=== PATIENT | male | born 2000 | race Asian ===

== ENCOUNTER 2022-01-25 15:47 | Inpatient (IN) ==
[~2022-01-25 15:47] MED LIST: ETOMIDATE 2 MG/ML 20 ML VIAL IV ONE; SUCCINYLCHOLINE CHLORIDE 20 MG/ML 10 ML VIAL IV ONE; fentaNYL citrate 100 MCG/2 ML VIAL IV ONE
[2022-01-25] MEDS ORDERED: SODIUM CHLORIDE 0.9% 1000ML 1,000 ML IV SCH (16:15)
--- NOTE | 2022-01-25 16:18 | Emergency Department Note ---
Impression & Plan Drug overdose, Seizure-like activity, Acute hypokalemia ED Provider Note HISTORY OF PRESENT ILLNESS: Patient is a 21-year-old male presenting after an intentional overdose. Family called 911 after they found the patient unconscious in his room. He took 25 pills of Wellbutrin 150 mg. Unknown ingestion time. Pharmacy records indicate the patient had a 90-day supply of bupropiron HCL XL 150 mg on 12/13/2021. Parents witnessed the patient have a tonic-clonic seizure and called 911. He reportedly just had a break-up with a girlfriend and had expressed thoughts of wanting to hurt himself. In route with EMS, the patient had another tonic- clonic seizure-like episode and was given 2.5 mg of Versed. He was given 1 L normal saline in route for tachycardia. On arrival to the ER, patient is lethargic and not able to answer any questions. ROS: Patient currently has altered mental status and is unable to provide accurate information regarding ROS, histories, meds, or allergies. Any information regarding ROS, Past medical or surgical history, social or family history documented below has been obtained from the EMR. Any additional history reg arding this cannot be obtained presently due to his medical condition. PHYSICAL EXAM: Constitutional: Patient appears in mild distress. HENT: Head: Normocephalic and atraumatic. Eyes: PERRL - Pupils 3 mm and reactive. Mouth/Throat: Mucous membranes moist. Neck: Trachea midline. Neck supple. Cardiovascular: Tachycardic with regular rhythm. No murmurs, rubs or gallops. Intact distal pulses. Pulmonary/Chest: No respiratory distress. Breath sounds clear and equal bilaterally. No wheezes or rales. Abdominal: BS +. Abdomen soft, no tenderness, rebound or guarding. Back: No midline spinal tenderness, no paraspinal tenderness, no CVA tenderness. Musculoskeletal: No edema, tenderness or deformity noted. Skin: Warm and dry. Psychiatric: Unable to assess. Neurological: Lethargic but opens eyes to painful stimuli. Does not follow comm ands. Gag reflex intact. Clonus present in bilateral lower extremities. MDM: - Vitals signs showed tachycardia and hypoxia. Started on 3L NC for respiratory support. - Patient has intact gag reflex and seems to be supporting his own airway at this time. - EKG negative for acute ischemic changes or dysrhythmia. Noted to be sinus tachycardia. QTc slightly prolonged at 515. - Contacted [facility] at 16:19 and discussed patient's case. Th recommended: - 2g IV mag for QTc >500 - Repeat EKG Q6H - Keep mag >2 and K >4 - Benzos for seizures and/or tachycardia - 2g IV mag ordered for prolonged QTc. 1g IV potassium ordered for replacement. - Laboratory workup showed leukocytosis (WBC 14.54 - likely reactive secondary to seizure); hypokalemia (K 3.3); elevated anion gap (25); negative salicylates and acetaminophen levels - ABG grossly unremarkable. - UA negative for infection - UDS positive for marijuana and MDMA - CXR negative for acute cardiopulmonary pathology. - While in ER, patient had a 15 second episode of seizure-like activity that broke without meds. He was given 0.5 mg IV ativan for tachycardia and continued confusion post-seizure. - Hospitalist Dr. Lim consulted for admission. - Patient admitted to hospitalist service for further evaluation and management. ASSESSMENT AND PLAN: Diagnosis: overdose; seizure-like activity; hypokalemia; prolonged QTc; elevated anion gap Plan: admit Past Med/Surg History Social History Smoking Status: Unknown if ever smoked Preferred Language: Croatian Feels Safe at Home: Yes Allergies Allergies Allergy/AdvReac Type Severity Reaction Status Date / Time No Known Allergies Allergy Unknown Unverified 09/02/02 10:50 Home Meds Home Medications Medication Instructions Recorded Confirmed bupropion HCl 150 mg 24 hr tablet, 150 mg PO QAM 01/25/22 01/25/22 extended release Results & Data (ED) Vital Signs Vital Signs - 24 hr 01/25/22 15:59 01/25/22 15:59 01/25/22 16:24 Temperature 36.7 C Temperature Source Oral Pulse Rate 137 H 126 H Respiratory Rate 22 20 Blood Pressure 90/47 L Blood Pressure Mean 61 Pulse Oximetry 95 88 L 97 Oxygen Delivery Method Nasal Cannula Nasal Cannula Nasal Cannula Oxygen Flow Rate 3 0 3 Sepsis New/Unexplained Change in Mental Status No Sepsis Action Taken by Nursing No Action Required Oxygen Flow Rate - Titration 3 Pulse Oximetry Post Tiitration 95 Laboratory Data Result diagrams: 01/25/22 15:47 01/25/22 15:47 Lab Results 11/26/22 11/26/22 11/26/22 Range/Units 15:47 15:47 15:47 WBC 14.54 H (4.8-10.8) K/ul RBC 6.23 H (4.63-6.08) M/uL Hgb 17.6 (14.0-18.0) g/dl Hct 51.1 H (40.1-51.0) % MCV 82.0 (80.0-100.0) fL MCH 28.3 (25.0-34.0) pg MCHC 34.4 (32.0-36.0) g/dL RDW Std Deviation 36.1 L (36.4-46.3) fL RDW Coeff of Silke 12.2 (11.5-14.5) % Plt Count 358 (130-400) K/uL MPV 9.4 (9.4-12.4) fL Immature Gran % (Auto) 0.6 % Neut % (Auto) 72.5 % Lymph % (Auto) 18.9 % Dickinson % (Auto) 6.0 % Eos % (Auto) 1.4 % Baso % (Auto) 0.6 % Neut # (Auto) 10.54 H (1.4-6.5) K/uL Lymph # (Auto) 2.75 (1.2-3.4) K/uL Dickinson # (Auto) 0.87 H (0.24-0.82) K/uL Eos # (Auto) 0.21 (0-0.50) K/uL Baso # (Auto) 0.09 (0-0.2) K/uL Immature Gran # (Auto) 0.08 H (0.00-0.02) K/uL PT 10.7 (9.0-12.0) Seconds INR 1.0 (0.9-1.1) ABG pH (7.35-7.45) ABG pCO2 (35-46) mmHg ABG pO2 (80-95) mmHg ABG HCO3 (19-24) mmol/L ABG O2 Saturation (90-95) % ABG Base Excess (-9-1.8) mEq/L Socrates Test (Pos) Oxygen Given Sodium 137 (136-145) mmol/L Potassium 3.3 L (3.5-5.1) mmol/L Chloride 100 (98-107) mmol/L Carbon Dioxide 12 L (21-32) mmol/L Anion Gap 25 H (3-11) BUN 11 (6-23) mg/dl Creatinine 1.26 (0.6-1.4) mg/dl Est Cr Clr Drug Dosing Not Reportable Est GFR ( Amer) 94.5 ml/min Est GFR (Non-Af Amer) 81.6 ml/min BUN/Creatinine Ratio 8.7 L (10-20) Glucose 111 H (70-99(Fasting)) mg/dl Calcium 9.9 (8.5-10.1) mg/dl Magnesium 2.1 (1.7-2.4) mg/dl Total Bilirubin 0.7 (0.2-1.0) mg/dl AST 20 (13-39) U/L ALT 26 (7-52) U/L Alkaline Phosphatase 95 (34-104) U/L Troponin I High Sens 4.5 (0-20) pg/ml Total Protein 8.4 H (6.0-8.3) gm/dl Albumin 5.2 H (3.4-5.0) gm/dl Globulin 3.2 (2.5-4.0) gm/dl Albumin/Globulin Ratio 1.6 (0.9-2) Urine Color Urine Appearance (Clear) Urine pH (4.5-7.5) Ur Specific [place] (1.000-1.030) Urine Protein (Negative) Urine Glucose (UA) (Negative) Urine Ketones (Negative) Urine Blood (Negative) Urine Nitrite (Negative) Urine Bilirubin (Negative) Urine Urobilinogen (Negative) Ur Leukocyte Esterase (Negative) Urine WBC (Auto) (0-5) /hpf Urine RBC (Auto) (0-4) /hpf U Hyaline Cast (Auto) (0-5) /lpf U Epithel Cells (Auto) (0-5) /lpf Urine Bacteria (Auto) (Negative) Salicylates (3.0-30) mg/dl Urine Opiates Screen (Neg) Ur Methadone, Qual (Neg) Acetaminophen (10-30) ug/ml Urine Barbiturates (Neg) Ur Phencyclidine (PCP) (Neg) U Amphetamin/Meth Scrn (Neg) MDMA (Ecstasy) Screen (Neg) U Benzodiazepines Scrn (Neg) Ur Cocaine Metabolite (Neg) U Marijuana (THC) Screen (Neg) Ethyl Alcohol mg/dL (<10.0) mg/dl 01/25/22 01/25/22 01/25/22 Range/Units 15:47 16:08 16:08 WBC (4.8-10.8) K/ul RBC (4.63-6.08) M/uL Hgb (14.0-18.0) g/dl Hct (40.1-51.0) % MCV (80.0-100.0) fL MCH (25.0-34.0) pg MCHC (32.0-36.0) g/dL RDW Std Deviation (36.4-46.3) fL RDW Coeff of Silke (11.5-14.5) % Plt Count (130-400) K/uL MPV (9.4-12.4) fL Immature Gran % (Auto) % Neut % (Auto) % Lymph % (Auto) % Dickinson % (Auto) % Eos % (Auto) % Baso % (Auto) % Neut # (Auto) (1.4-6.5) K/uL Lymph # (Auto) (1.2-3.4) K/uL Dickinson # (Auto) (0.24-0.82) K/uL Eos # (Auto) (0-0.50) K/uL Baso # (Auto) (0-0.2) K/uL Immature Gran # (Auto) (0.00-0.02) K/uL PT (9.0-12.0) Seconds INR (0.9-1.1) ABG pH (7.35-7.45) ABG pCO2 (35-46) mmHg ABG pO2 (80-95) mmHg ABG HCO3 (19-24) mmol/L ABG O2 Saturation (90-95) % ABG Base Excess (-9-1.8) mEq/L Socrates Test (Pos) Oxygen Given Sodium (136-145) mmol/L Potassium (3.5-5.1) mmol/L Chloride (98-107) mmol/L Carbon Dioxide (21-32) mmol/L Anion Gap (3-11) BUN (6-23) mg/dl Creatinine (0.6-1.4) mg/dl Est Cr Clr Drug Dosing Est GFR ( Amer) ml/min Est GFR (Non-Af Amer) ml/min BUN/Creatinine Ratio (10-20) Glucose (70-99(Fasting)) mg/dl Calcium (8.5-10.1) mg/dl Magnesium (1.7-2.4) mg/dl Total Bilirubin (0.2-1.0) mg/dl AST (13-39) U/L ALT (7-52) U/L Alkaline Phosphatase (34-104) U/L Troponin I High Sens (0-20) pg/ml Total Protein (6.0-8.3) gm/dl Albumin (3.4-5.0) gm/dl Globulin (2.5-4.0) gm/dl Albumin/Globulin Ratio (0.9-2) Urine Color Dark Yellow Urine Appearance Clear (Clear) Urine pH 5.5 (4.5-7.5) Ur Specific [place] 1.031 H (1.000-1.030) Urine Protein Trace H (Negative) Urine Glucose (UA) Negative (Negative) Urine Ketones Trace H (Negative) Urine Blood Negative (Negative) Urine Nitrite Negative (Negative) Urine Bilirubin 1+ H (Negative) Urine Urobilinogen Negative (Negative) Ur Leukocyte Esterase Negative (Negative) Urine WBC (Auto) 1-5 (0-5) /hpf Urine RBC (Auto) 0-4 (0-4) /hpf U Hyaline Cast (Auto) 1-5 (0-5) /lpf U Epithel Cells (Auto) 0-5 (0-5) /lpf Urine Bacteria (Auto) Negative (Negative) Salicylates < 3.0 L (3.0-30) mg/dl Urine Opiates Screen Neg (Neg) Ur Methadone, Qual Neg (Neg) Acetaminophen < 3 L (10-30) ug/ml Urine Barbiturates Neg (Neg) Ur Phencyclidine (PCP) Neg (Neg) U Amphetamin/Meth Scrn Neg (Neg) MDMA (Ecstasy) Screen Pos H (Neg) U Benzodiazepines Scrn Neg (Neg) Ur Cocaine Metabolite Neg (Neg) U Marijuana (THC) Screen Pos H (Neg) Ethyl Alcohol mg/dL (<10.0) mg/dl 01/25/22 01/25/22 Range/Units 16:40 16:40 WBC (4.8-10.8) K/ul RBC (4.63-6.08) M/uL Hgb (14.0-18.0) g/dl Hct (40.1-51.0) % MCV (80.0-100.0) fL MCH (25.0-34.0) pg MCHC (32.0-36.0) g/dL RDW Std Deviation (36.4-46.3) fL RDW Coeff of Silke (11.5-14.5) % Plt Count (130-400) K/uL MPV (9.4-12.4) fL Immature Gran % (Auto) % Neut % (Auto) % Lymph % (Auto) % Dickinson % (Auto) % Eos % (Auto) % Baso % (Auto) % Neut # (Auto) (1.4-6.5) K/uL Lymph # (Auto) (1.2-3.4) K/uL Dickinson # (Auto) (0.24-0.82) K/uL Eos # (Auto) (0-0.50) K/uL Baso # (Auto) (0-0.2) K/uL Immature Gran # (Auto) (0.00-0.02) K/uL PT (9.0-12.0) Seconds INR (0.9-1.1) ABG pH 7.34 L (7.35-7.45) ABG pCO2 41 (35-46) mmHg ABG pO2 117 H (80-95) mmHg ABG HCO3 22 (19-24) mmol/L ABG O2 Saturation > 100.0 H (90-95) % ABG Base Excess -3.5 (-9-1.8) mEq/L Socrates Test Pos (Pos) Oxygen Given 3L Sodium (136-145) mmol/L Potassium (3.5-5.1) mmol/L Chloride (98-107) mmol/L Carbon Dioxide (21-32) mmol/L Anion Gap (3-11) BUN (6-23) mg/dl Creatinine (0.6-1.4) mg/dl Est Cr Clr Drug Dosing Est GFR ( Amer) ml/min Est GFR (Non-Af Amer) ml/min BUN/Creatinine Ratio (10-20) Glucose (70-99(Fasting)) mg/dl Calcium (8.5-10.1) mg/dl Magnesium (1.7-2.4) mg/dl Total Bilirubin (0.2-1.0) mg/dl AST (13-39) U/L ALT (7-52) U/L Alkaline Phosphatase (34-104) U/L Troponin I High Sens (0-20) pg/ml Total Protein (6.0-8.3) gm/dl Albumin (3.4-5.0) gm/dl Globulin (2.5-4.0) gm/dl Albumin/Globulin Ratio (0.9-2) Urine Color Urine Appearance (Clear) Urine pH (4.5-7.5) Ur Specific [place] (1.000-1.030) Urine Protein (Negative) Urine Glucose (UA) (Negative) Urine Ketones (Negative) Urine Blood (Negative) Urine Nitrite (Negative) Urine Bilirubin (Negative) Urine Urobilinogen (Negative) Ur Leukocyte Esterase (Negative) Urine WBC (Auto) (0-5) /hpf Urine RBC (Auto) (0-4) /hpf U Hyaline Cast (Auto) (0-5) /lpf U Epithel Cells (Auto) (0-5) /lpf Urine Bacteria (Auto) (Negative) Salicylates (3.0-30) mg/dl Urine Opiates Screen (Neg) Ur Methadone, Qual (Neg) Acetaminophen (10-30) ug/ml Urine Barbiturates (Neg) Ur Phencyclidine (PCP) (Neg) U Amphetamin/Meth Scrn (Neg) MDMA (Ecstasy) Screen (Neg) U Benzodiazepines Scrn (Neg) Ur Cocaine Metabolite (Neg) U Marijuana (THC) Screen (Neg) Ethyl Alcohol mg/dL < 10.0 (<10.0) mg/dl Administered Medications Sodium Chloride (Nss 1000ml) 1,000 mls @ 999 mls/hr IV .Q1H1M BRIAN Stop: 01/25/22 17:15 Last Infusion: 01/25/22 17:00 Dose: 0 mls/hr Documented By: Admin: 01/25/22 16:00 Dose: 999 mls/hr Documented By: BRENDA Magnesium Sulfate/Dextrose (Magnesium Sulfate / D5w) 1 gm in 100 mls @ 200 mls/hr IV Q30M BRIAN Stop: 01/25/22 17:30 Last Admin: 11/26/22 17:02 Dose: 200 mls/hr Documented By: BRENDA Potassium Chloride (K Enrico / Wtr) 10 meq in 100 mls @ 100 mls/hr IV ONE ONE; Protocol Stop: 01/25/22 17:40 Last Admin: 01/25/22 17:02 Dose: 100 mls/hr Documented By: BRENDA Discontinued Medications Lorazepam (Lorazepam 1 Mg/1 Ml Syr) 0.5 mg IV NOW STA; Protocol Stop: 01/25/22 16:24 Last Admin: 01/25/22 16:51 Dose: 0.5 mg Documented By: BRENDA Imaging Data Radiologist's Impression: Chest X-Ray 01/25/22 16:15 SINGLE VIEW CHEST CLINICAL HISTORY: Overdose. FINDINGS: An AP, portable, upright chest radiograph is obtained. No prior studies are available for comparison at the time of dictation. The cardiomediastinal silhouette is unremarkable. The lungs and pleural spaces are clear noting bibasilar atelectasis. No pneumothorax is seen. The bony thorax is grossly intact. IMPRESSION: No active disease in the chest. ACT 112: Negative or not required by law. Electronically signed by: Spike Oconnor M.D. 01/25/2022 4:55 PM Discharge Plan Visit Data Chief Complaint: Overdose (Intentional) Stated Complaint: OVERDOSE, SEIZURE ED Provider: Samantha Ortiz Discharge Problem: Drug overdose, Seizure-like activity, Acute hypokalemia Patient Disposition: Admitted As Inpatient Forms Stand Alone Forms: My [facility], Suicide Prevention Resources Prescriptions Prescriptions: No Action bupropion HCl 150 mg tablet extended release 24 hr 150 mg PO QAM Referrals Referrals: Sully Kay [Outside Practitioners] -
[2022-01-25 16:23] LABS: Basophils # (auto) 0.09 K/uL (0-0.2); Basophils % (auto) 0.6 %; Eosinophils # (auto) 0.21 K/uL (0-0.50); Eosinophils % (auto) 1.4 %; Hematocrit (blood only) 51.1 % (40.1-51.0); Hemoglobin 17.6 g/dl (14.0-18.0); Immature Granulocytes # (auto) 0.08 K/uL (0.00-0.02); Immature Granulocytes % (auto) 0.6 %; Lymphocytes # (auto) 2.75 K/uL (1.2-3.4); Lymphocytes % (auto) 18.9 %; Mean Corpuscular Hemoglobin 28.3 pg (25.0-34.0); Mean Corpuscular Hgb Conc 34.4 g/dL (32.0-36.0); Mean Platelet Volume 9.4 fL (9.4-12.4); Monocytes # (auto) 0.87 K/uL (0.24-0.82); Neutrophils # (auto) 10.54 K/uL (1.4-6.5); Neutrophils % (auto) 72.5 %; Platelet Count 358 K/uL (130-400); RDW Coefficient of Variation 12.2 % (11.5-14.5); RDW Standard Deviation 36.1 fL (36.4-46.3); Red Blood Count 6.23 M/uL (4.63-6.08); White Blood Count 14.54 K/ul (4.8-10.8)
[2022-01-25] MEDS ORDERED: LORazepam 1 MG/1 ML SYR IV STA ×2 (16:23→18:18)
[2022-01-25 16:31] LABS: Appearance Urine Clear (Clear); Bacteria Urine Automated Negative (Negative); Blood Urine Negative (Negative); Color Urine Dark Yellow; Epithelial Cell Urine Auto 0-5 /lpf (0-5); Glucose Urine UA Negative (Negative); Ketones Urine Trace (Negative); Leukocyte Esterase Urine Negative (Negative); Nitrite Urine Negative (Negative); Protein Urine Trace (Negative); RBC Urine Automated 0-4 /hpf (0-4); Specific Gravity Urine 1.031 (1.000-1.030); Urobilinogen Urine Negative (Negative); pH Urine 5.5 (4.5-7.5)
[2022-01-25 16:35] LABS: Prothrombin Time 10.7 Seconds (9.0-12.0)
[2022-01-25 16:35] LABS: Bilirubin Urine 1+ (Negative)
[2022-01-25 16:36] LABS: Acetaminophen < 3 ug/ml (10-30); Salicylate < 3.0 mg/dl (3.0-30)
[2022-01-25 16:37] LABS: Alanine Aminotransferase 26 U/L (7-52); Albumin Globulin Ratio 1.6 (0.9-2); Albumin Level 5.2 gm/dl (3.4-5.0); Alkaline Phosphatase 95 U/L (34-104); Anion Gap 25 (3-11); Aspartate Aminotransferase 20 U/L (13-39); BUN Creatinine Ratio 8.7 (10-20); Bilirubin,Total 0.7 mg/dl (0.2-1.0); Blood Urea Nitrogen 11 mg/dl (6-23); Calcium 9.9 mg/dl (8.5-10.1); Carbon Dioxide 12 mmol/L (21-32); Chloride 100 mmol/L (98-107); Est GFR (African American) 94.5 ml/min; Est GFR (Non-African American) 81.6 ml/min; Globulin 3.2 gm/dl (2.5-4.0); Glucose 111 mg/dl (70-99(Fasting)); Magnesium 2.1 mg/dl (1.7-2.4); Potassium 3.3 mmol/L (3.5-5.1); Sodium 137 mmol/L (136-145); Total Protein 8.4 gm/dl (6.0-8.3)
[2022-01-25 16:40] LABS: Troponin I High Sensitivity 4.5 pg/ml (0-20)
[2022-01-25] MEDS ORDERED: POTASSIUM CHLORIDE / WTR 10 MEQ/100 ML PLCT IV ONE (16:41)
[2022-01-25 16:51] LABS: Base Excess ABG -3.5 mEq/L (-9-1.8); HCO3 ABG 22 mmol/L (19-24); Oxygen Saturation ABG > 100.0 % (90-95); PCO2 ABG 41 mmHg (35-46); PO2 ABG 117 mmHg (80-95); pH ABG 7.34 (7.35-7.45)
[2022-01-25 16:51] LABS: Amphetamines+Metham, Urine Neg (Neg); Barbiturates, Urine Neg (Neg); Benzodiazepine, Urine Neg (Neg); Cocaine, Urine Neg (Neg); MDMA (Ecstacy), Urine Pos (Neg); Methadone, Urine Neg (Neg); Opiate, Urine Neg (Neg); Phencyclidine, Urine Neg (Neg)
[2022-01-25 16:53] LABS: Allen Test Pos (Pos)
--- NOTE | 2022-01-25 16:57 | XRay Report ---
SINGLE VIEW CHEST CLINICAL HISTORY: Overdose. FINDINGS: An AP, portable, upright chest radiograph is obtained. No prior studies are available for c omparison at the time of dictation. The cardiomediastinal silhouette is unremarkable. The lungs and p leural spaces are clear noting bibasilar atelectasis. No pneumothorax is seen. The bony thorax is gabriel ssly intact. IMPRESSION: No active disease in the chest. ACT 112: Negative or not required by law. Electronically signed by: Spike Oconnor M.D. 01/25/2022 4:55 PM
[2022-01-25] MEDS: MAGNESIUM SULFATE / D5W 1 GM/100 ML BAG IV SCH ×2 (17:02→17:33)
--- NOTE | 2022-01-25 17:11 | History & Physical Report ---
Date of Service January 25, 2022 Assessment & Plan (1) Suicide attempt by drug ingestion: Plan: - Estimated patient took estimated 25-50 150-mg Wellbutrin XL tablets, sometime this morning/afternoon. Unknown ingestion time. - Subsequently had 3 tonic-clonic seizures, each witnessed by family/EMS/ED staff. - Currently lethargic, minimally responsive, but adequately maintaining airway. - QTC 515. 2 g IV magnesium ordered as per [facility] recommendati ons. - EKG every 6 hours. - Ativan ordered for future seizures. - Admit to ICU. (2) Seizure-like activity: Plan: - 3 total witnessed seizures, 1st noted by family, 2nd by EMS, 3rd by ED staff. - Due to Wellbutrin overdose which is medication known to reduce seizure threshold. - No history of seizures. - 2.5 mg IV Versed given en route, additional 0.5mg IV Ativan in ED for 15 second seizure. - (3) Hypokalemia: Plan: - K 3.3, replete electrolytes with goal Mg > 2, K > 4. (4) Depression: Plan: - Prescription for 90 pills of 150 mg Wellbutrin XL on 12/13/2021. - Psychiatry consult will be placed on patient. Plan - Admit to ICU. - SCDs for VTE ppx. - Full Code. History of Present Illness Chief Complaint: Unconscious with seizure-like activity at home this afternoon, suspected overdose. Primary Care Provider: Sully Kay Vivek Serna is a 21 y/o male with a PMH of depression who arrives to the ED via EMS with parents at bedside today for suspected intentional overdose. Patient was found unconscious in his room this afternoon by his parents. After finding patient, parents witnessed what sounds like a tonic-clonic seizure and called EMS. Family reports that he recently broke up with his girlfriend and had expressed thoughts of wanting to hurt himself. Family believes it was 25 pills ingested however there are 50 pills unaccounted for. Unknown ingestion sign, he does have a 90-day supply of Wellbutrin XL 150 mg filled on 12/13. Patient has a history of a previous suicide attempt several months ago. Patient had another witnessed seizure en route, EMS gave 2.5 mg of Versed and 1L NS bolus. He had a third seizure in the ED in front of ED provider, given 0.5 mg IV Ativan. On presentation, he is hypotensive 90s/50s, HR [id number], 88% on room air, placed on 3 L NC. Labs notable for AB.34/41/117/22. AG 25. Potassium 3.3, all other electrolytes within normal limits. WBC 14.5, likely reactive from seizures. UDS positive for MDMA (likely caused by Wellbutrin), marijuana. ED provider contacted [place] poison control center to discuss recommendations. Given his QTC >500, they recommended 2 g IV magnesium, repeat EKG every 6 hours, goal Mg >2, K >4, as well as benzodiazepines for control of further seizures. Allergies Allergy/AdvReac Type Severity Reaction Status Date / Time No Known Allergies Allergy Unknown Unverified 09/02/02 10:50 Home Medications Medication Instructions Recorded Confirmed Type bupropion HCl 150 mg 24 hr tablet, 150 mg PO QAM 01/25/22 01/25/22 History extended release Past Med/Surg History Medical History (Updated 01/25/22 @ 17:18 by Rachel Esposito PA-C) Depression Drug overdose Surgical History (Updated 01/25/22 @ 17:17 by Rachel Esposito PA-C) No pertinent past surgical history Family History (Updated 01/25/22 @ 17:17 by Rachel Esposito PA-C) Other Family history non-contributory Social History Smoking Status: Unknown if ever smoked Preferred Language: Russian Feels Safe at Home: Yes Review of Systems Review of Systems: Unobtainable due to cognitive status Results & Data Results & Data ([facility]) Vital Signs (Past 12 Hours) Vital Signs Temp Pulse Resp BP Pulse Ox O2 Del Method O2 Flow Rate 01/25/22 16:24 126 H 20 97 Nasal Cannula 3 01/25/22 15:59 88 L Nasal Cannula 0 01/25/22 15:59 36.7 C 137 H 22 90/47 L 95 Nasal Cannula 3 Laboratory Results Abnormal lab results 01/25/22 01/25/22 01/25/22 Range/Units 15:47 15:47 15:47 WBC 14.54 H (4.8-10.8) K/ul RBC 6.23 H (4.63-6.08) M/uL Hct 51.1 H (40.1-51.0) % RDW Std Deviation 36.1 L (36.4-46.3) fL Neut # (Auto) 10.54 H (1.4-6.5) K/uL Stan[place] # (Auto) 0.87 H (0.24-0.82) K/uL Immature Gran # (Auto) 0.08 H (0.00-0.02) K/uL ABG pH (7.35-7.45) ABG pO2 (80-95) mmHg ABG O2 Saturation (90-95) % Potassium 3.3 L (3.5-5.1) mmol/L Carbon Dioxide 12 L (21-32) mmol/L Anion Gap 25 H (3-11) BUN/Creatinine Ratio 8.7 L (10-20) Glucose 111 H (70-99(Fasting)) mg/dl Total Protein 8.4 H (6.0-8.3) gm/dl Albumin 5.2 H (3.4-5.0) gm/dl Ur Specific [place] (1.000-1.030) Urine Protein (Negative) Urine Ketones (Negative) Urine Bilirubin (Negative) Salicylates < 3.0 L (3.0-30) mg/dl Acetaminophen < 3 L (10-30) ug/ml MDMA (Ecstasy) Screen (Neg) U Marijuana (THC) Screen (Neg) 01/25/22 01/25/22 01/25/22 Range/Units 16:08 16:08 16:40 WBC (4.8-10.8) K/ul RBC (4.63-6.08) M/uL Hct (40.1-51.0) % RDW Std Deviation (36.4-46.3) fL Neut # (Auto) (1.4-6.5) K/uL [place] # (Auto) (0.24-0.82) K/uL Immature Gran # (Auto) (0.00-0.02) K/uL ABG pH 7.34 L (7.35-7.45) ABG pO2 117 H (80-95) mmHg ABG O2 Saturation > 100.0 H (90-95) % Potassium (3.5-5.1) mmol/L Carbon Dioxide (21-32) mmol/L Anion Gap (3-11) BUN/Creatinine Ratio (10-20) Glucose (70-99(Fasting)) mg/dl Total Protein (6.0-8.3) gm/dl Albumin (3.4-5.0) gm/dl Ur Specific [place] 1.031 H (1.000-1.030) Urine Protein Trace H (Negative) Urine Ketones Trace H (Negative) Urine Bilirubin 1+ H (Negative) Salicylates (3.0-30) mg/dl Acetaminophen (10-30) ug/ml MDMA (Ecstasy) Screen Pos H (Neg) U Marijuana (THC) Screen Pos H (Neg) Diagnostic Findings Chest X-Ray 01/25/22 16:15 SINGLE VIEW CHEST CLINICAL HISTORY: Overdose. FINDINGS: An AP, portable, upright chest radiograph is obtained. No prior studies are available for comparison at the time of dictation. The cardiomediastinal silhouette is unremarkable. The lungs and pleural spaces are clear noting bibasilar atelectasis. No pneumothorax is seen. The bony thorax is grossly intact. IMPRESSION: No active disease in the chest. ACT 112: Negative or not required by law. Electronically signed by: Spike Oconnor M.D. 01/25/2022 4:55 PM ECG Additional Comments: Sinus tachycardia Incomplete right bundle branch block Borderline ECG No previous ECGs available. QTC 515 Code Status & VTE Plan Code Status Full Code. PG Care Time/CCT Total # of Minutes Spent Total Time Spent with Patient: Total time spent is greater than 50% in coordination of care (as documented) at patient's floor/unit and/or counseling patient: Coding Diagnoses Suicide attempt by drug ingestion T50.902A Seizure-like activity R56.9 Hypokalemia E87.6 Depression F32.A
--- NOTE | 2022-01-25 17:49 | CT Scan Report ---
CT SCAN OF THE BRAIN WITHOUT IV CONTRAST CLINICAL HISTORY: Seizure. Found down. Overdose. COMPARISON STUDY: No priors. TECHNIQUE: Unenhanced axial CT scan of the brain is performed from the vertex to the skull base. A d ose lowering technique was utilized adhering to the principles of ALARA. CT DOSE: 614.27 mGy.cm FINDINGS: Brain parenchyma: The brain parenchyma is normal in appearance. There is no hemorrhage, mass effect, or evidence of acute territorial ischemia by CT criteria. Mendoza-white matter differentiation is preser shad. No extra-axial fluid collection is seen. Ventricles, sulci, cisterns: Normal in configuration. Intracranial vasculature: The visualized intracranial vasculature at the skull base is normal in appe arance. Calvarium: Unremarkable. Sinuses and mastoids: There is trace mucosal thickening within the maxillary antra. The remaining vis ualized paranasal sinuses are clear. The mastoid air cells are well pneumatized. Orbits: The bony orbits are grossly intact. IMPRESSION: No acute intracranial abnormality. ACT 112: Negative or not required by law. Electronically signed by: Spike Oconnor M.D. 01/25/2022 5:47 PM
[2022-01-25] MEDS ORDERED: LORazepam 1 MG/1 ML SYR IV PRN ×2 (18:23→19:53)
--- NOTE | 2022-01-25 18:44 | History & Physical Report ---
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 and also on the way to the emergency room Poison center was called by the ER physician and was advised to observe in the ICU with close monitoring of electrolytes and EKG Admitted to ICU and gear repair supervisor was consulted (2) Seizure-like activity: Plan: Has had seizure-like activity First was noted while he was in driving sit at home and the second on on the way to the emergency room Small seizures in the ER x2 controlled with intravenous Ativan of 5 mg Will give Ativan as needed to control seizure May need intubation to protect airways Leukocytosis May have aspiration Started on intravenous Unasyn (3) Suicide attempt by drug ingestion: Plan: Reportedly has had a break-up with a girlfriend Could be the cause of overdose Psychiatrist will be consulted (4) Depression: Plan: Has been on Wellbutrin not sure if he has been taking it or not (5) Attention deficit hyperactivity disorder: Plan: In the chart (6) Impulsive personality disorder: Plan: The family members mentioned that he has impulsive disorder DVT prophylax SCD CODE STATUS Full (7) Hypokalemia: History of Present Illness Chief Complaint: Intentional overdose of Wellbutrin Primary Care Provider: Gio Rasheed MD He is a 21-year-old male with significant past medical history of Bowers attention deficit hyperactivity disorder, allergic rhinitis, atopic dermatitis, chronic allergic conjunctivitis and impulsive disorder apparently took an overdose of 25 tablets of 150 mg long-acting Wellbutrin around 2:30 PM. He took this overdose in [place] likely in front office girlfriend and he drove to [place]. Reported to have nausea and vomiting on the way or in [place]. The father saw him seizing at the long haul truck driver seat and [place] and then he was brought to the emergency room via EMS. He reportedly just had a ha ak-up with his girlfriend and even expressed thoughts of wanting to hurt himself. No history of self injury except minor bruising involving the right dorsum of hand and no tongue bite, frothing the mouth, incontinence of bowel or stool but he was very drowsy following the episode of seizure. The paramedics saw him seizing in the ambulance. In the ER he has had 2 episodes of small seizures controlled with 0.5 mg of IV Ativan x2. He likely has aspiration following the last seizure and he was noted to be tachycardic with increasing white count. He was admitted to ICU for continued care. The poison center was called in by the ER physician was advised to observe, look for any change in EKG and give Ativan as needed for seizures. Allergies Allergy/AdvReac Type Severity Reaction Status Date / Time No Known Allergies Allergy Unknown Unverified 09/02/02 10:50 Home Medications Medication Instructions Recorded Confirmed Type bupropion HCl 150 mg 24 hr tablet, 150 mg PO QAM 01/25/22 01/25/22 History extended release Past Med/Surg History Medical History Depression Drug overdose Surgical History No pertinent past surgical history Family History Other Family history non-contributory Social History Smoking Status: Unknown if ever smoked Do You Dip or Chew Tobacco: No; Hx Alcohol Use: Yes Hx Substance Use: No Preferred Language: Welsh Communication Ability: intubated 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 Minimal restlessness at times. No shortness of breath at rest Constitutional: well developed, well nourished, + ill appearing and + obese Eyes: PERRL, conjunctivae normal, anicteric sclerae ENMT: external ear and nose normal, oropharynx normal Neck: trachea midline, no thyromegaly Respiratory: + respiratory distress (Minimal shortness of breath at rest) Auscultation: + diminished lung sounds and + crackles (Occasional crackles at the bases) Cardiovascular: Rate/Rhythm: regular rate, regular rhythm and + tachycardic Heart Sounds: normal S1 and normal S2; no murmur Extremities: no edema Gastrointestinal (Abdomen): Inspection/Auscultation: normal bowel sounds; abdomen not distended Percussion/Palpation: abdomen soft; abdomen nontender Musculoskeletal: No acute arthritis involving any joint Neurologic: Alert and awake. Drowsy. Moves all limbs with occasional jerking movement involving the limbs. Trying to communicate but cannot do it due to drowsiness. Lymphatic: no cervical or axillary lymphadenopathy Results & Data Results & Data ([facility]) Vital Signs (Past 12 Hours) Vital Signs Temp Pulse Resp BP Pulse Ox O2 Del Method O2 Flow Rate 01/25/22 18:15 143 H 26 H 97 3 01/25/22 18:15 106/60 01/25/22 18:04 153 H 27 H 97 3 01/25/22 18:04 130/69 01/25/22 18:00 128 H 22 98 3 01/25/22 18:00 109/66 01/25/22 17:45 126 H 21 97 3 01/25/22 17:43 97 3 01/25/22 17:43 117/68 01/25/22 17:15 135 H 24 98 3 01/25/22 17:15 91/58 L 01/25/22 17:00 152 H 26 H 98 3 01/25/22 17:00 127/69 01/25/22 16:54 158 H 26 H 96 3 01/25/22 16:54 106/69 01/25/22 16:45 125 H 25 H 96 3 01/25/22 16:45 97/57 L 01/25/22 16:30 126 H 23 95 3 01/25/22 16:30 94/54 L 01/25/22 16:15 128 H 20 96 3 01/25/22 16:15 94/49 L 01/25/22 16:24 126 H 20 97 Nasal Cannula 3 01/25/22 15:59 88 L Nasal Cannula 0 01/25/22 15:59 36.7 C 137 H 22 90/47 L 95 Nasal Cannula 3 Laboratory Results Short CBC 01/25/22 Range/Units 15:47 WBC 14.54 H (4.8-10.8) K/ul Hgb 17.6 (14.0-18.0) g/dl Hct 51.1 H (40.1-51.0) % Plt Count 358 (130-400) K/uL BMP 01/25/22 15:47 Sodium 137 Potassium 3.3 L Chloride 100 Carbon Dioxide 12 L BUN 11 Creatinine 1.26 Glucose 111 H Calcium 9.9 Liver Function 01/25/22 Range/Units 15:47 Total Bilirubin 0.7 (0.2-1.0) mg/dl AST 20 (13-39) U/L ALT 26 (7-52) U/L Alkaline Phosphatase 95 (34-104) U/L Albumin 5.2 H (3.4-5.0) gm/dl Urine 01/25/22 Range/Units 16:08 Urine Color Dark Yellow Urine Appearance Clear (Clear) Urine pH 5.5 (4.5-7.5) Ur Specific [place] 1.031 H (1.000-1.030) Urine Protein Trace H (Negative) Urine Glucose (UA) Negative (Negative) Medications Administered Current Inpatient Medications Potassium Chloride/Sodium Chloride (1/2 Nss + 20meq Kcl 1000ml) 20 meq in 1,000 mls @ 80 mls/hr IV .[id number] BRIAN; Protocol Stop: 02/24/22 18:29 Ampicillin Sodium/Sulbactam Sodium 3,000 mg/ Sodium Chloride 108 mls @ 200 mls/hr IV Q6H BRIAN; Protocol Stop: 02/01/22 18:29 Lorazepam (Lorazepam 1 Mg/1 Ml Syr) 0.5 mg IV UD PRN; Protocol PRN Reason: Breakthrough Seizures Stop: 02/24/22 18:22 Code Status & VTE Plan VTE Prophylaxis Plan VTE Prophylaxis will be ordered: Yes
[2022-01-25] MEDS ORDERED: LORazepam 0.5 MG in SYRINGE 0 ML IV PRN (18:45)
[2022-01-25] MEDS ORDERED: PROPOFOL IV EMULSION 10 MG/ML 100 ML VIAL IV ONE (19:05)
[2022-01-25] MEDS ORDERED: RAPID SEQUENCE INDUCTION BAG ONE (19:05)
[2022-01-25] MEDS ORDERED: fentaNYL citrate 100 MCG/2 ML VIAL IV STA (19:34)
--- NOTE | 2022-01-25 19:43 | XRay Report ---
SINGLE VIEW CHEST CLINICAL HISTORY: Respiratory failure. Endotracheal tube placement. FINDINGS: 2 AP, portable, supine chest radiographs are compared to study performed earlier the same d ay 01/25/2022. An endotracheal tube has been placed. The tip projects approximately 4 cm above the ca bindu on the second image. An enteric tube has been placed. The tip projects below the diaphragm over the gastric fundus. The cardiomediastinal silhouette is unremarkable. The lungs and pleural spaces ar e clear noting bibasilar atelectasis. No pneumothorax is seen. The bony thorax is grossly intact. IMPRESSION: 1. Endotracheal and enteric tubes have been placed as above. 2. The lungs are clear. ACT 112: Negative or not required by law. Electronically signed by: Spike Oconnor M.D. 01/25/2022 7:41 PM
[2022-01-25] MEDS ORDERED: STAT IV Infusion **Titration per Protocol STA (19:45)
[2022-01-25] MEDS ORDERED: PROPOFOL BOLUS FROM BAG IV PRN (19:45)
[2022-01-25] MEDS ORDERED: SODIUM CHLORIDE 0.9% 1000ML 1,000 ML IV ONE (19:53)
[2022-01-25] MEDS ORDERED: SODIUM CHLOR 0.45% + 20MEQ KCL 20 MEQ/1,000 ML BAG IV SCH (20:00)
[2022-01-25] MEDS ORDERED: Patient's HEIGHT &/or WEIGHT Needed SCH (20:00)
--- NOTE | 2022-01-25 20:07 | Critical Care Consultation ---
Date of Consultation January 25, 2022 Assessment & Plan (1) Impulsive personality disorder: (2) Attention deficit hyperactivity disorder: (3) Depression: (4) Drug overdose: (5) Seizure-like activity: (6) Suicide attempt by drug ingestion: Plan Reason Critically Ill: 21 YOM intubated for seizure activity and airway protection in the setting of Buproprion XR intentional overdose. Seizures are likely related to his Buproprion toxicity at this time, [facility] has been consulted Neuro - Intentional overdose, suicide attempt, seizure, Depression CAM ICU: [facility] at this time - Intubated for recurrent seizures- these are likely related to his bupropion toxicity as this is the most common effect- Propofol for sedation as well as seizures, Ativan PRN for siezure lasting >2 min, if not controlled start versed infusion as well. - Sedation with Propofol infusion and Fentanyl PRN - Toxicology screen positive for Marijuana and MDA - Amount of ingestion is unknown, but best information available of dose is between 3.2 GM and 7.5 GM of extended release- supportive care as above for seizure treatment/prophylaxis, will continue with IVF to dilute the effects as able, Hopefully this will eric out and not progress to cardiac toxicity. If symptoms worsen and/or seizures continue with above treatment- consider total bowel irrigation with go-lytely, if hemodynamic toxicity occurs - support with Levophed attempt to obtain transfer for ECMO. If these fail then can consider intralipid infusion as well. - BIS monitor - Aware that neurotoxicity can have pretty severely altered neurological exams- continue full supportive care - Neurology consulted- appreciate assistance- EEG in am, currently would not add further anti-epileptic therapy- discussed with Dr. Farfan. Cardiac - Sinus Tachycardia, Prolonged QT - Tachycardia likely related to overdose- continue with IVF and sedation - QTC- improved on arrival to ICU- continue to maintain ~4.0 and MG >2.0 - Follow for any ventricular arrhythmias Respiratory - Intubated on mechanical ventilation - Intubated for neurotoxic effects of bupropion/seizures - Compliant with ventilator - employ lung protective ventilation - 7.28/48/188/22 GI - OGT placed - OGT to LIWS - follow for ileus- KUB in am - if symptoms progress- will pursue total bowel irrigation RENAL/LYTES - No acute needs at this time Electrolyte protocol- may need further supplementation to Keep K >4.0 and MG >2.0 - No acute needs ENDO - NO acute needs HEME - No acute needs ID - Aspiration pneumonitis, Leukocytosis - Unasyn for now- for aspiration pneumonitis - Daily CXR while intubated - follow fever curves LINES/IV ACCESS - PIV, Yusuf, ETT, OGT, Continue use of these lines DVT PROPHYLAXIS - SCDS, Heparin 5000 units sub q BID DISPO: ICU while intubated Family was updated at the bedside regarding support and poor ability to prognostocate/determine clinical severity at this time regarding his ingestion. They understand there is no reversal and care plan is as outlined above. I have personally spent 50 minutes of critical care time in the direct management of this patient. This is a life/limb threatening event. This includes time spent evaluating patient, direct bedside care, chart review, placing orders, interpretation of diagnostic studies, discussion with consultants, patient, and family members, as well as other required patient management activities. This time is exclusive of all separately billable procedures, and separate from and in addition to any other critical care service time. Thank you for allowing us to participate in the care of this patient. Please refer to my attending physician's documentation for any further recommendations. Supervising Physician Co-Signing Physician Notes Seen and examined. EMR reviewed. Discussed with critical care JOLIE and agree with assessment plan as noted. Please refer to my documentation from 01/26/2022 for additional details. History of Present Illness Reason for Consultation: Buproprion Toxicity multiple seizure, intubated and sedated Requesting Physician: Dr. Momin Attending Physician: Dr. Momin History of Present Illness 21 YOM with medical history: Impulsive disorder, ADDHD, Depression. Patient was brought in to the EMD today for unknown amount of overdose of Buproprion 150mg XR tablets. Patient is accompanied by his family- Dad, Mom, and Sister. Information was obtained mostly from the family. Patient was awake, obtunded on evaluation. He was intubated for airway protection in the setting of obtundation/aspiration x2 as well as seizures x5. Patient Father states the patient texted him at 1400 today and said he was overdosing- the patient drove from [place] to his Father's house in [place], he arrived there and Father reports he found him seizing in the car in the driveway. He seized again with EMS where he got 0.5mg Ativan as well as 3 more seizures in the EMD. Last reported 1829. Seizures are precipitated by agitation, flushing of face, tachycardia, then with tensing of arms and legs, clonic movement and last 10-15 seconds and all have spontaneously broken. He was reported as clearing mentation valadez following each seizure, but now is more obtunded than before. He was intubated in the EMD with Etomidate and Succinylcholine, 7.5 ETT placed. OGT placed and connected to LIWS. He was initiated on Propofol for sedation as well as for seizures. The amount of Bupropion ingested is not known- he has a script for 150mg tablets- x90 day supply. He reportedly told EMS that he took 25 tablets of 150mg, family reports that they can't find the bottle and approx 50 tabs not accounted for. Total ingestion is between 3.5 GM - 7.5 GM with ingestion time unknown but likely around [id number]. He had one other suicide attempt in the past year where he took "a few of his Wellbuturin and was just sleepy". He was not give Charcoal in the EMD, poison control was contacted. Intubated as above. He was given 1liter of saline and 0.5mg Ativan. Patient will remain on Propofol with benzodiazepine as needed. Continue with volume and monitoring of hemodynamics. Hopeful patient symptoms eric at this point and don't progress to cardiotoxicity. He is FULL CODE. Allergies Allergy/AdvReac Type Severity Reaction Status Date / Time No Known Allergies Allergy Unknown Unverified 09/02/02 10:50 Home Medications Medication Instructions Recorded Confirmed Type bupropion HCl 150 mg 24 hr tablet, 150 mg PO QAM 01/25/22 01/25/22 History extended release Patient History Medical History Depression Drug overdose Surgical History No pertinent past surgical history Family History Other Family history non-contributory Social History Smoking Status: Unknown if ever smoked Do You Dip or Chew Tobacco: No; Hx Alcohol Use: Yes Hx Substance Use: No Preferred Language: Kiswahili Communication Ability: intubated Petrography Teacher Required: No Beliefs That Will Affect Care: None Current Living Situation: Other Current Living Situation Comment: living in [place] with girl friend broke up came back to [place] Other Information That Helps Us Care for You: No Feels Safe at Home: Yes Assistive Devices: None Review of Systems Review of Systems: ROS unobtainable at this time. Physical Exam Physical Exam: PHYSICAL EXAM: General: Obese, obtunded Neurologic: PEERLA, speech appropriate but confused, hallucinations, moves all extremities without deficit Respiratory: Tachypnea, decreased in bases, 7.5 ETT tube advanced following placement Cardiovascular: sinus tachycardia, s1/s2, skin warm and dry, peripheral pulses chest pain, tightness or palpitations GI: NABS x 4 quadrants, soft, nontender to palpation, no rebound, guarding or tenderness, OGT placed : Yusuf to gravity Extremities: Normal inspection, no peripheral edema or erythema, calfs no ntender to palpation Psych: Normal mood and affect Skin: no rash or erythema Results & Data Results & Data ([facility]) Vital Signs (Past 12 Hours) Vital Signs Temp Pulse Resp BP Pulse Ox O2 Del Method O2 Flow Rate 01/25/22 19:00 123 H 32 H 98 Nasal Cannula 3 01/25/22 19:00 110/67 01/25/22 18:45 123 H 25 H 96 Nasal Cannula 3 01/25/22 18:45 111/60 01/25/22 18:30 134 H 21 97 Nasal Cannula 3 01/25/22 18:30 109/61 01/25/22 18:15 143 H 26 H 97 3 01/25/22 18:15 106/60 01/25/22 18:04 153 H 27 H 97 3 01/25/22 18:04 130/69 01/25/22 18:00 128 H 22 98 3 01/25/22 18:00 109/66 01/25/22 17:45 126 H 21 97 3 01/25/22 17:43 97 3 01/25/22 17:43 117/68 01/25/22 17:15 135 H 24 98 3 01/25/22 17:15 91/58 L 01/25/22 17:00 152 H 26 H 98 3 01/25/22 17:00 127/69 01/25/22 16:54 158 H 26 H 96 3 01/25/22 16:54 106/69 01/25/22 16:45 125 H 25 H 96 3 01/25/22 16:45 97/57 L 01/25/22 16:30 126 H 23 95 3 01/25/22 16:30 94/54 L 01/25/22 16:15 128 H 20 96 3 01/25/22 16:15 94/49 L 01/25/22 16:24 126 H 20 97 Nasal Cannula 3 01/25/22 15:59 88 L Nasal Cannula 0 01/25/22 15:59 36.7 C 137 H 22 90/47 L 95 Nasal Cannula 3 Laboratory Results Abnormal lab results 01/25/22 01/25/22 01/25/22 Range/Units 15:47 15:47 15:47 WBC 14.54 H (4.8-10.8) K/ul RBC 6.23 H (4.63-6.08) M/uL Hct 51.1 H (40.1-51.0) % RDW Std Deviation 36.1 L (36.4-46.3) fL Neut # (Auto) 10.54 H (1.4-6.5) K/uL [place] # (Auto) 0.87 H (0.24-0.82) K/uL Immature Gran # (Auto) 0.08 H (0.00-0.02) K/uL ABG pH (7.35-7.45) ABG pO2 (80-95) mmHg ABG O2 Saturation (90-95) % Potassium 3.3 L (3.5-5.1) mmol/L Carbon Dioxide 12 L (21-32) mmol/L Anion Gap 25 H (3-11) BUN/Creatinine Ratio 8.7 L (10-20) Glucose 111 H (70-99(Fasting)) mg/dl Total Protein 8.4 H (6.0-8.3) gm/dl Albumin 5.2 H (3.4-5.0) gm/dl Ur Specific [place] (1.000-1.030) Urine Protein (Negative) Urine Ketones (Negative) Urine Bilirubin (Negative) Salicylates < 3.0 L (3.0-30) mg/dl Acetaminophen < 3 L (10-30) ug/ml MDMA (Ecstasy) Screen (Neg) U Marijuana (THC) Screen (Neg) 01/25/22 01/25/22 01/25/22 Range/Units 16:08 16:08 16:40 WBC (4.8-10.8) K/ul RBC (4.63-6.08) M/uL Hct (40.1-51.0) % RDW Std Deviation (36.4-46.3) fL Neut # (Auto) (1.4-6.5) K/uL [place] # (Auto) (0.24-0.82) K/uL Immature Gran # (Auto) (0.00-0.02) K/uL ABG pH 7.34 L (7.35-7.45) ABG pO2 117 H (80-95) mmHg ABG O2 Saturation > 100.0 H (90-95) % Potassium (3.5-5.1) mmol/L Carbon Dioxide (21-32) mmol/L Anion Gap (3-11) BUN/Creatinine Ratio (10-20) Glucose (70-99(Fasting)) mg/dl Total Protein (6.0-8.3) gm/dl Albumin (3.4-5.0) gm/dl Ur Specific [place] 1.031 H (1.000-1.030) Urine Protein Trace H (Negative) Urine Ketones Trace H (Negative) Urine Bilirubin 1+ H (Negative) Salicylates (3.0-30) mg/dl Acetaminophen (10-30) ug/ml MDMA (Ecstasy) Screen Pos H (Neg) U Marijuana (THC) Screen Pos H (Neg) Diagnostic Findings Chest X-Ray 01/25/22 16:15 SINGLE VIEW CHEST CLINICAL HISTORY: Overdose. FINDINGS: An AP, portable, upright chest radiograph is obtained. No prior studies are available for comparison at the time of dictation. The cardiomediastinal silhouette is unremarkable. The lungs and pleural spaces are clear noting bibasilar atelectasis. No pneumothorax is seen. The bony thorax is grossly intact. IMPRESSION: No active disease in the chest. ACT 112: Negative or not required by law. Electronically signed by: Spike Oconnor M.D. 01/25/2022 4:[address] 01/25/22 17:09 CT SCAN OF THE BRAIN WITHOUT IV CONTRAST CLINICAL HISTORY: Seizure. Found down. Overdose. COMPARISON STUDY: No priors. TECHNIQUE: Unenhanced axial CT scan of the brain is performed from the vertex to the skull base. A dose lowering technique was utilized adhering to the principles of ALARA. CT DOSE: 614.27 mGy.cm FINDINGS: Brain parenchyma: The brain parenchyma is normal in appearance. There is no hemorrhage, mass effect, or evidence of acute territorial ischemia by CT criteria. Mendoza-white matter differentiation is preserved. No extra-axial fluid collection is seen. Ventricles, sulci, cisterns: Normal in configuration. Intracranial vasculature: The visualized intracranial vasculature at the skull base is normal in appearance. Calvarium: Unremarkable. Sinuses and mastoids: There is trace mucosal thickening within the maxillary antra. The remaining visualized paranasal sinuses are clear. The mastoid air cells are well pneumatized. Orbits: The bony orbits are grossly intact. IMPRESSION: No acute intracranial abnormality. ACT 112: Negative or not required by law. Electronically signed by: Spike Oconnor M.D. 01/25/2022 5:47 PM Chest X-Ray 01/25/22 19:28 SINGLE VIEW CHEST CLINICAL HISTORY: Respiratory failure. Endotracheal tube placement. FINDINGS: 2 AP, portable, supine chest radiographs are compared to study performed earlier the same day 01/25/2022. An endotracheal tube has been placed. The tip projects approximately 4 cm above the gabriel on the second image. An enteric tube has been placed. The tip projects below the diaphragm over the gastric fundus. The cardiomediastinal silhouette is unremarkable. The lungs and pleural spaces are clear noting bibasilar atelectasis. No pneumothorax is seen. The bony thorax is grossly intact. IMPRESSION: 1. Endotracheal and enteric tubes have been placed as above. 2. The lungs are clear. ACT 112: Negative or not required by law. Electronically signed by: Spike Oconnor M.D. 01/25/2022 7:41 PM Medications Administered Home Medications bupropion HCl 150 mg 24 hr tablet, extended release 150 mg PO QAM 01/25/22 [Hist ory Confirmed 01/25/22] Active Medications Fentanyl Citrate (Fentanyl Citrate 100 Mcg/2 Ml Vial) 50 mcg IV Q1H PRN PRN Reason: pain/agitation Stop: 02/08/22 20:14 Ampicillin Sodium/Sulbactam Sodium 3,000 mg/ Sodium Chloride 108 mls @ 200 mls/hr IV Q6H BRIAN; Protocol Stop: 02/01/22 19:59 Propofol (Diprivan) 1,000 mg in 100 mls @ 13.44 mls/hr IV .Q7H27M BRIAN; Protocol Stop: 01/28/22 19:44 Lactated Ringer's (Lr) 1,000 mls @ 115 mls/hr IV .Q8H42M BRIAN Stop: 02/24/22 20:29 Sodium Chloride (Nss 1000ml) 1,000 mls @ 999 mls/hr IV .Q1H1M ONE Stop: 01/25/22 20:53 Lorazepam 2 mg/ Syringe 2 mls @ 2 mls/min IV UD PRN PRN Reason: SEIZURE ACTIVITY > 2MIN Stop: 02/24/22 20:14 Miscellaneous (Patient's Height &/Or Weight Needed) 1 each N/A Q2H BRIAN Stop: 01/25/22 23:30 Propofol (Propofol Bolus From Bag) 20 mg IV Q5M PRN PRN Reason: Sedation Stop: 01/28/22 19:44 Discontinued Medications Fentanyl Citrate (Fentanyl Citrate 100 Mcg/2 Ml Vial) 50 mcg IV NOW STA Stop: 01/25/22 19:35 Last Admin: 01/25/22 19:34 Dose: 50 mcg Documented By: SHAMEKA Sodium Chloride (Nss 1000ml) 1,000 mls @ 999 mls/hr IV .Q1H1M BRIAN Stop: 01/25/22 17:15 Last Infusion: 01/25/22 17:00 Dose: 0 mls/hr Documented By: Admin: 01/25/22 16:00 Dose: 999 mls/hr Documented By: BRENDA Magnesium Sulfate/Dextrose (Magnesium Sulfate / D5w) 1 gm in 100 mls @ 200 mls/hr IV Q30M BRIAN Stop: 01/25/22 17:30 Last Infusion: 01/25/22 18:03 Dose: 0 mls/hr Documented By: Admin: 01/25/22 17:33 Dose: 200 mls/hr Documented By: Infusion: 01/25/22 17:32 Dose: 0 mls/hr Documented By: Admin: 01/25/22 17:02 Dose: 200 mls/hr Documented By: BRENDA Potassium Chloride (K [place] / Wtr) 10 meq in 100 mls @ 100 mls/hr IV ONE ONE; Protocol Stop: 01/25/22 17:40 Last Infusion: 01/25/22 18:02 Dose: 0 mls/hr Documented By: Admin: 01/25/22 17:02 Dose: 100 mls/hr Documented By: BRENDA Lorazepam (Lorazepam 1 Mg/1 Ml Syr) 0.5 mg IV NOW STA; Protocol Stop: 01/25/22 16:24 Last Admin: 01/25/22 16:51 Dose: 0.5 mg Documented By: BRENDA Lorazepam (Lorazepam 1 Mg/1 Ml Syr) 0.5 mg IV NOW STA; Protocol Stop: 01/25/22 18:19 Last Admin: 01/25/22 18:21 Dose: 0.5 mg Documented By: KIMBERLY Miscellaneous (Rapid Sequence Induction Bag) Confirm Administered Dose 1 each .ROUTE .STK-MED ONE Stop: 01/25/22 19:06 Last Admin: 01/25/22 19:14 Dose: 1 each Documented By: SHAMEKA Propofol (Propofol Iv Emulsion 10 Mg/Ml 100 Ml Vial) Confirm Administered Dose 1,000 mg IV .STK-MED ONE Stop: 01/25/22 19:06 Last Admin: 01/25/22 19:17 Dose: 1,000 mg Documented By: SHAMEKA Co-signed By: PATRICK ECG Additional Comments: Sinus tachycardia Incomplete right bundle branch block Borderline ECG No previous ECGs available- QT/QTc 334/515 ms Coding Level of Care Code Critical Care 1st 30-74 mins Diagnoses Impulsive personality disorder F60.3 Attention deficit hyperactivity disorder F90.9 Depression F32.A Drug overdose T50.901A Seizure-like activity R56.9 Suicide attempt by drug ingestion T50.902A
[2022-01-25] MEDS ORDERED: LORazepam 2 MG in SYRINGE 0 ML IV PRN (20:15)
[2022-01-25] MEDS: LACTATED RINGER'S 1,000 ML IV SCH (20:20)
[2022-01-25] MEDS: AMPICILLIN/SULBACTAM SOD 3,000 MG in 0.9 % SODIUM CHLORIDE 100 ML IV SCH (20:21)
[2022-01-25] MEDS: fentaNYL citrate 100 MCG/2 ML VIAL IV PRN ×2 (20:29→22:05)
[2022-01-25 20:55] LABS: iSTAT Allen Test Pass; iSTAT Arterial Blood Gas HCO3 22 meg/L (19-24); iSTAT Arterial Blood Gas pCO2 47 mmHg (35-46); iSTAT Arterial Blood Gas pH 7.29 (7.35-7.45); iSTAT Arterial Blood Gas pO2 115 mmHg (80-95); iSTAT Carbon Dioxide 24 mmol/L (24-31); iSTAT FiO2 40 %; iSTAT Site L Radial
[2022-01-25] MEDS: propofoL 1,000 MG/100 ML VIAL IV SCH ×2 (21:09→22:33)
[2022-01-25 21:11] LABS: BUN Creatinine Ratio 8.9 (10-20); Calcium 7.8 mg/dl (8.5-10.1); Creatinine Clr Calc Pharmacy 131.8 ml/min; Est GFR (Non-African American) 94.1 ml/min; Potassium 3.8 mmol/L (3.5-5.1)
[2022-01-25] MEDS: POTASSIUM CHLORIDE / WTR 10 MEQ/100 ML PLCT IV SCH ×2 (21:56→22:59)
[2022-01-25] MEDS: PROPOFOL BOLUS FROM BAG IV PRN (22:05)
[2022-01-26] MEDS: fentaNYL citrate 100 MCG/2 ML VIAL IV PRN ×5 (00:52→16:13)
[2022-01-26] MEDS: PROPOFOL BOLUS FROM BAG IV PRN ×2 (00:53→02:16)
[2022-01-26 01:14] LABS: BUN Creatinine Ratio 7.8 (10-20); Calcium 7.8 mg/dl (8.5-10.1); Creatinine Clr Calc Pharmacy 128.4 ml/min; Est GFR (African American) 105.6 ml/min; Est GFR (Non-African American) 91.1 ml/min; Magnesium 2.3 mg/dl (1.7-2.4)
[2022-01-26] MEDS: propofoL 1,000 MG/100 ML VIAL IV SCH ×8 (02:15→16:43)
[2022-01-26] MEDS: AMPICILLIN/SULBACTAM SOD 3,000 MG in 0.9 % SODIUM CHLORIDE 100 ML IV SCH ×4 (02:36→20:39)
[2022-01-26] MEDS: LACTATED RINGER'S 1,000 ML IV SCH ×3 (04:15→21:30)
[2022-01-26 04:56] LABS: Basophils # (auto) 0.02 K/uL (0-0.2); Basophils % (auto) 0.1 %; Eosinophils # (auto) 0.02 K/uL (0-0.50); Eosinophils % (auto) 0.1 %; Hemoglobin 12.9 g/dl (14.0-18.0); Immature Granulocytes # (auto) 0.04 K/uL (0.00-0.02); Immature Granulocytes % (auto) 0.3 %; Lymphocytes # (auto) 1.21 K/uL (1.2-3.4); Lymphocytes % (auto) 8.8 %; Mean Corpuscular Hgb Conc 34.9 g/dL (32.0-36.0); Mean Corpuscular Volume 80.3 fL (80.0-100.0); Mean Platelet Volume 8.6 fL (9.4-12.4); Monocytes # (auto) 1.22 K/uL (0.24-0.82); Monocytes % (auto) 8.9 %; Neutrophils # (auto) 11.27 K/uL (1.4-6.5); Neutrophils % (auto) 81.8 %; Platelet Count 206 K/uL (130-400); RDW Coefficient of Variation 12.3 % (11.5-14.5); RDW Standard Deviation 35.6 fL (36.4-46.3); Red Blood Count 4.61 M/uL (4.63-6.08); White Blood Count 13.78 K/ul (4.8-10.8)
[2022-01-26 04:59] LABS: Albumin Globulin Ratio 1.6 (0.9-2); Albumin Level 3.5 gm/dl (3.4-5.0); Bilirubin,Total 0.9 mg/dl (0.2-1.0); Calcium 7.8 mg/dl (8.5-10.1); Creatinine Clr Calc Pharmacy 129.5 ml/min; Est GFR (African American) 106.7 ml/min; Est GFR (Non-African American) 92.1 ml/min; Globulin 2.2 gm/dl (2.5-4.0); Magnesium 2.2 mg/dl (1.7-2.4); Phosphorus 3.5 mg/dl (2.5-4.9); Potassium 3.6 mmol/L (3.5-5.1); Total Protein 5.7 gm/dl (6.0-8.3)
[2022-01-26] MEDS: POTASSIUM CHLORIDE / WTR 10 MEQ/100 ML PLCT IV SCH ×2 (05:53→06:50)
[2022-01-26] MEDS ORDERED: POTASSIUM CHLORIDE 20 MEQ/15 ML UDC PO STA (06:11)
[2022-01-26] MEDS: ICU ELECTROLYTE REPLACEMENT PROTOCOL SCH ×2 (06:52→16:13)
--- NOTE | 2022-01-26 07:07 | Electrocardiogram Report ---
Test Reason : Blood Pressure : / mmHG Vent. Rate : 115 BPM Atrial Rate : 115 BPM P-R Int : 174 ms QRS Dur : 108 ms QT Int : 350 ms P-R-T Axes : 056 064 043 degrees QTc Int : 484 ms Poor data quality, interpretation may be adversely affected Sinus tachycardia Otherwise normal ECG When compared with ECG of 25-JAN-2022 15:53, (unconfirmed) No significant change was found Confirmed by Toñito Myers ([id number]) on 01/26/2022 7:07:50 AM Referred By: REFERRED SELF Confirmed By:Eran Myers
[2022-01-26 07:09] LABS: Base Excess VBG 2.3 mEq/L; HCO3 VBG 27 mmol/L; PCO2 VBG 39 mmHg (38-50); PO2 VBG 59 mmHg; pH VBG 7.44 (7.36-7.41)
--- NOTE | 2022-01-26 07:10 | Electrocardiogram Report ---
Test Reason : Blood Pressure : / mmHG Vent. Rate : 092 BPM Atrial Rate : 092 BPM P-R Int : 164 ms QRS Dur : 104 ms QT Int : 386 ms P-R-T Axes : 033 069 042 degrees QTc Int : 477 ms Normal sinus rhythm Normal ECG When compared with ECG of 25-JAN-2022 20:26, (unconfirmed) No significant change was found Confirmed by Toñito Myers ([id number]) on 01/26/2022 7:09:57 AM Referred By: REFERRED SELF Confirmed By:Eran Myers
--- NOTE | 2022-01-26 07:13 | Electrocardiogram Report ---
Test Reason : Blood Pressure : / mmHG Vent. Rate : 083 BPM Atrial Rate : 083 BPM P-R Int : 170 ms QRS Dur : 106 ms QT Int : 400 ms P-R-T Axes : 051 063 030 degrees QTc Int : 470 ms Normal sinus rhythm Normal ECG When compared with ECG of 26-JAN-2022 00:37, (unconfirmed) No significant change was found Confirmed by Toñito Myers ([id number]) on 01/26/2022 7:13:04 AM Referred By: REFERRED SELF Confirmed By:Eran Myers
--- NOTE | 2022-01-26 07:16 | Electrocardiogram Report ---
Test Reason : Blood Pressure : / mmHG Vent. Rate : 143 BPM Atrial Rate : 143 BPM P-R Int : 164 ms QRS Dur : 106 ms QT Int : 334 ms P-R-T Axes : 053 055 042 degrees QTc Int : 515 ms Sinus tachycardia Incomplete right bundle branch block Borderline ECG No previous ECGs available Confirmed by Toñito Myers ([id number]) on 01/26/2022 7:16:28 AM Referred By: REFERRED SELF Confirmed By:Eran Myers
--- NOTE | 2022-01-26 09:15 | XRay Report ---
XR chest 1V portable, XR KUB/Abdomen 1 view HISTORY: 21 years-old Male evaluate ETT placment, pneumonitis/pneumonia acute respiratory failure COMPARISON: Chest radiograph 01/25/2022 TECHNIQUE: AP view of the chest with KUB radiograph. FINDINGS: CHEST: Endotracheal tube overlies the midline, 3.4 cm superior to the gabriel. Distal tip of enteric tube pro jects over the gastric body. Cardiomediastinal and hilar silhouettes are within normal limits. Lungs are mildly hypoinflated. No pneumothorax, pleural effusion, airspace consolidation or overt pulmonary edema. Bones of the chest appear grossly intact. KUB: Air is noted within the stomach, large and small bowel. A catheter projects over the midline pelvis. Air-filled loops of small bowel within the abdominal left upper quadrant measures within the upper li mits of normal at approximately 3 cm. No pneumatosis or pneumoperitoneum. No urolith or acute fractur e identified. IMPRESSION: 1. Lines and tubes as above. 2. Nonobstructive bowel gas pattern with a few loops of small bowel within the left midabdomen measur ing within the upper limits of normal. Findings may represent a mild ileus. 3. No acute process of the chest. ACT 112: Negative or not required by law. The above report was generated using voice recognition software. It may contain grammatical, syntax o r spelling errors. Electronically signed by: Ricco Herr M.D. 01/26/2022 9:14 AM
--- NOTE | 2022-01-26 10:06 | Critical Care Progress Note ---
Date of Service January 26, 2022 Assessment & Plan (1) Impulsive personality disorder: (2) Attention deficit hyperactivity disorder: (3) Depression: (4) Drug overdose: (5) Seizure-like activity: (6) Suicide attempt by drug ingestion: Plan Reason Critically Ill: 21 YOM intubated for seizure activity and airway protection in the setting of Buproprion XR intentional overdose. Seizures are likely related to his Buproprion toxicity at this time, [facility] has been consulted Recommendations: Neuro -overdose on Wellbutrin with associated seizures. Currently on propofol. Awaiting EEG and neurology evaluation today. Once that completed, can likely discontinue propofol and extubate the patient. Behavioral health consultation placed. Will need a psychiatric hold. Will use Geodon for agitation if QT remains stable Cardiac -QTC is normalized this morning. He is hemodynamically stable. No additional intervention required. Respiratory -intubated so the patient can be on propofol for status epilepticus. Minimal vent settings. Once propofol is off, the patient can likely be extubated. He has not required SBT. GI -no current issues. Anticipate the patient should be able to liberate from the ventilator and advance diet as tolerated. RENAL/LYTES -ICU electrolyte replacement protocol in place. No other issues. - No acute needs ENDO - NO acute needs HEME - No acute needs ID -leukocytosis with questionable aspiration event. He did have a low-grade fever last night. Day #2 Unasyn. Can likely de-escalate to Augmentin and would treat for 3 to 5 days. LINES/IV ACCESS - PIV, Yusuf, ETT, OGT, Continue use of these lines DVT PROPHYLAXIS - SCDS, Heparin 5000 units sub q BID DISPO: ICU while intubated Family was updated at the bedside. Discussed with critical care nurse at bedside as well. Admission and Anticipated Discharge Date Admission Date: January 25, 2022 Subjective Patient is intubated and sedated. Review of Systems Review of Systems: Unobtainable due to endotracheal tube Physical Exam Constitutional: WD/WN, vitals as above Neck: trachea midline, no thyromegaly Respiratory: normal respiratory effort, lungs clear to auscultation Cardiovascular: RRR, no murmur, no edema Gastrointestinal (Abdomen): normal bowel sounds, soft, nontender, no hepatosplenomegaly Musculoskeletal: Extremities: extremities normal to inspection Skin: no rashes, warm and dry Neurologic: Nonfocal exam Lymphatic: no cervical lymphadenopathy Results & Data Results & Data ([facility]) Vital Signs (Past 12 Hours) Vital Signs Temp Pulse Resp BP Pulse Ox FiO2 01/26/22 08:12 81 20 99 30 01/26/22 06:15 37.5 C 85 20 96 01/26/22 06:00 37.5 C 89 20 97 01/26/22 06:00 87/65 L 01/26/22 05:45 37.6 C H 93 H 20 99 01/26/22 05:30 37.7 C H 94 H 20 97 01/26/22 05:30 117/68 01/26/22 05:15 37.7 C H 28 H 01/26/22 05:00 37.7 C H 82 20 98 01/26/22 05:00 100/52 L 01/26/22 04:45 37.8 C H 83 20 98 01/26/22 04:30 37.7 C H 84 20 98 01/26/22 04:30 103/50 L 01/26/22 04:15 37.8 C H 86 20 99 01/26/22 04:00 37.8 C H 85 20 99 01/26/22 04:00 102/54 L 01/26/22 03:45 37.8 C H 87 20 99 01/26/22 03:30 37.8 C H 88 20 99 01/26/22 03:30 99/54 L 01/26/22 03:15 37.9 C H 88 20 98 01/26/22 03:00 37.9 C H 85 20 98 01/26/22 02:45 37.9 C H 89 20 98 01/26/22 02:30 37.9 C H 91 H 20 98 01/26/22 04:00 30 01/26/22 03:10 85 20 98 30 01/26/22 02:15 37.9 C H 94 H 24 98 01/26/22 02:11 37.9 C H 100 H 22 99 01/26/22 02:11 115/65 01/26/22 02:00 37.9 C H 90 20 01/26/22 01:45 37.9 C H 98 H 20 99 01/26/22 01:30 37.9 C H 89 20 97 01/26/22 01:30 102/54 L 01/26/22 01:15 37.8 C H 89 20 97 01/26/22 01:00 37.8 C H 89 20 97 01/26/22 00:48 37.8 C H 95 H 20 98 01/26/22 00:48 114/65 01/26/22 00:45 37.8 C H 95 H 20 97 01/26/22 00:30 37.8 C H 92 H 20 98 01/26/22 00:15 37.7 C H 93 H 20 98 01/26/22 00:00 37.7 C H 93 H 20 98 01/25/22 23:45 37.7 C H 94 H 20 98 01/25/22 23:30 37.6 C H 96 H 20 98 01/25/22 23:30 109/64 01/26/22 00:00 30 01/25/22 23:15 96 H 20 98 30 01/25/22 23:32 95 H 01/25/22 23:15 37.6 C H 96 H 20 98 01/25/22 23:00 37.6 C H 92 H 20 98 01/25/22 23:00 102/60 01/25/22 22:59 37.6 C H 93 H 20 98 01/25/22 22:59 104/58 L 01/25/22 22:45 37.5 C 96 H 20 99 01/25/22 22:30 37.5 C 99 H 20 98 01/25/22 22:15 37.5 C 104 H 20 98 Critical Care Results & Data Vital Signs (Past 12 Hours) Vital Signs Temp Pulse Resp BP Pulse Ox FiO2 01/26/22 08:12 81 20 99 30 01/26/22 06:15 37.5 C 85 20 96 01/26/22 06:00 37.5 C 89 20 97 01/26/22 06:00 87/65 L 01/26/22 05:45 37.6 C H 93 H 20 99 01/26/22 05:30 37.7 C H 94 H 20 97 01/26/22 05:30 117/68 01/26/22 05:15 37.7 C H 28 H 01/26/22 05:00 37.7 C H 82 20 98 01/26/22 05:00 100/52 L 01/26/22 04:45 37.8 C H 83 20 98 01/26/22 04:30 37.7 C H 84 20 98 01/26/22 04:30 103/50 L 01/26/22 04:15 37.8 C H 86 20 99 01/26/22 04:00 37.8 C H 85 20 99 01/26/22 04:00 102/54 L 01/26/22 03:45 37.8 C H 87 20 99 01/26/22 03:30 37.8 C H 88 20 99 01/26/22 03:30 99/54 L 01/26/22 03:15 37.9 C H 88 20 98 01/26/22 03:00 37.9 C H 85 20 98 01/26/22 02:45 37.9 C H 89 20 98 01/26/22 02:30 37.9 C H 91 H 20 98 01/26/22 04:00 30 01/26/22 03:10 85 20 98 30 01/26/22 02:15 37.9 C H 94 H 24 98 01/26/22 02:11 37.9 C H 100 H 22 99 01/26/22 02:11 115/65 01/26/22 02:00 37.9 C H 90 20 01/26/22 01:45 37.9 C H 98 H 20 99 01/26/22 01:30 37.9 C H 89 20 97 01/26/22 01:30 102/54 L 01/26/22 01:15 37.8 C H 89 20 97 01/26/22 01:00 37.8 C H 89 20 97 01/26/22 00:48 37.8 C H 95 H 20 98 01/26/22 00:48 114/65 01/26/22 00:45 37.8 C H 95 H 20 97 01/26/22 00:30 37.8 C H 92 H 20 98 01/26/22 00:15 37.7 C H 93 H 20 98 01/26/22 00:00 37.7 C H 93 H 20 98 01/25/22 23:45 37.7 C H 94 H 20 98 01/25/22 23:30 37.6 C H 96 H 20 98 01/25/22 23:30 109/64 11/27/22 00:00 30 01/25/22 23:15 96 H 20 98 30 01/25/22 23:32 95 H 01/25/22 23:15 37.6 C H 96 H 20 98 01/25/22 23:00 37.6 C H 92 H 20 98 01/25/22 23:00 102/60 01/25/22 22:59 37.6 C H 93 H 20 98 01/25/22 22:59 104/58 L 01/25/22 22:45 37.5 C 96 H 20 99 01/25/22 22:30 37.5 C 99 H 20 98 01/25/22 22:15 37.5 C 104 H 20 98 Lab & Micro Results (Past 24 Hours) RBC 4.61 M/uL (4.63-6.08) L 01/26/22 WBC 13.78 K/ul (4.8-10.8) H 01/26/22 Hgb 12.9 g/dl (14.0-18.0) L 01/26/22 Hct 37.0 % (40.1-51.0) L 01/26/22 MCV 80.3 fL (80.0-100.0) 01/26/22 MCH 28.0 pg (25.0-34.0) 01/26/22 MCHC 34.9 g/dL (32.0-36.0) 01/26/22 RDW Standard Deviation 35.6 fL (36.4-46.3) L 01/26/22 RDW Coefficient of Variation 12.3 % (11.5-14.5) 01/26/22 Plt Count 206 K/uL (130-400) 01/26/22 MPV 8.6 fL (9.4-12.4) L 01/26/22 Neutrophils (%) (Auto) 81.8 % 01/26/22 Lymphocytes (%) (Auto) 8.8 % 01/26/22 Monocytes # (Auto) 1.22 K/uL (0.24-0.82) H 01/26/22 Eosinophils # (Auto) 0.02 K/uL (0-0.50) 01/26/22 Immature Granulocyte % (Auto) 0.3 % 01/26/22 Neutrophils # (Auto) 11.27 K/uL (1.4-6.5) H 01/26/22 Lymphocytes # (Auto) 1.21 K/uL (1.2-3.4) 01/26/22 Monocytes # (Auto) 1.22 K/uL (0.24-0.82) H 01/26/22 Eosinophils # (Auto) 0.02 K/uL (0-0.50) 01/26/22 Basophils # (Auto) 0.02 K/uL (0-0.2) 01/26/22 Immature Granulocyte # (Auto) 0.04 K/uL (0.00-0.02) H 01/26 Na 138 mmol/L (136-145) 01/26/22 K 3.6 mmol/L (3.5-5.1) 01/26/22 Cl 109 mmol/L (98-107) H 01/26/22 CO2 22 mmol/L (21-32) 01/26/22 Anion Gap 7 (3-11) 01/26/22 BUN 8 mg/dl (6-23) 01/26/22 Creatinine 1.14 mg/dl (0.6-1.4) 01/26/22 Estimated GFR ( Amer) 106.7 ml/min 01/26/22 Estimated GFR (Non-Af Amer) 92.1 ml/min 01/26/22 BUN/Creatinine Ratio 7.0 (10-20) L 01/26/22 Glu 89 mg/dl (70-99(Fasting)) 01/26/22 Ca 7.8 mg/dl (8.5-10.1) L 01/26/22 Phosphorus Level 3.5 mg/dl (2.5-4.9) 01/26/22 Total Bilirubin 0.9 mg/dl (0.2-1.0) 01/26/22 AST 18 U/L (13-39) 01/26/22 ALT 18 U/L (7-52) 01/26/22 Alkaline Phosphatase 66 U/L (34-104) 01/26/22 TP 5.7 gm/dl (6.0-8.3) L 01/26/22 Albumin 3.5 gm/dl (3.4-5.0) 01/26/22 Globulin 2.2 gm/dl (2.5-4.0) L 01/26/22 Albumin/Globulin Ratio 1.6 (0.9-2) 01/26/22 Mg 2.2 mg/dl (1.7-2.4) 01/26/22 04:27 Calcium Level 7.8 mg/dl (8.5-10.1) L 01/26/22 04:27 Prothromb Time International Ratio 1.0 (0.9-1.1) 01/25/22 15:4 7 Venous Blood pH 7.44 (7.36-7.41) H 01/26/22 06:57 Venous Blood Partial Pressure CO2 39 mmHg (38-50) 01/26/22 06:5 7 Venous Blood Partial Pressure O2 59 mmHg 01/26/22 06:57 Venous Blood HCO3 27 mmol/L 01/26/22 06:57 Venous Blood Base Excess 2.3 mEq/L 01/26/22 06:57 Venous Blood Oxygen Saturation 92.0 % 01/26/22 06:57 Arterial Blood pH 7.34 (7.35-7.45) L 01/25/22 16:40 Arterial Blood Partial Pressure CO2 41 mmHg (35-46) 01/25/22 16 :40 Arterial Blood Partial Pressure O2 117 mmHg (80-95) H 01/25/22 16:40 Arterial Blood HCO3 22 mmol/L (19-24) 01/25/22 16:40 Arterial Blood Base Excess -3.5 mEq/L (-9-1.8) 01/25/22 16:40 Arterial Blood Oxygen Saturation > 100.0 % (90-95) H 01/25/22 1 6:40 Blood Gas Oxygen Given 3L 01/25/22 16:40 Socrates Test Pass 01/25/22 20:38 Diagnostic Findings (Past 24 Hours) Chest X-Ray 01/25/22 16:15 SINGLE VIEW CHEST CLINICAL HISTORY: Overdose. FINDINGS: An AP, portable, upright chest radiograph is obtained. No prior studies are available for comparison at the time of dictation. The cardiomediastinal silhouette is unremarkable. The lungs and pleural spaces are clear noting bibasilar atelectasis. No pneumothorax is seen. The bony thorax is grossly intact. IMPRESSION: No active disease in the chest. ACT 112: Negative or not required by law. Electronically signed by: Spike Oconnor M.D. 01/25/2022 4:[address] 01/25/22 17:09 CT SCAN OF THE BRAIN WITHOUT IV CONTRAST CLINICAL HISTORY: Seizure. Found down. Overdose. COMPARISON STUDY: No priors. TECHNIQUE: Unenhanced axial CT scan of the brain is performed from the vertex to the skull base. A dose lowering technique was utilized adhering to the principles of ALARA. CT DOSE: 614.27 mGy.cm FINDINGS: Brain parenchyma: The brain parenchyma is normal in appearance. There is no hemorrhage, mass effect, or evidence of acute territorial ischemia by CT criteria. Mendoza-white matter differentiation is preserved. No extra-axial fluid collection is seen. Ventricles, sulci, cisterns: Normal in configuration. Intracranial vasculature: The visualized intracranial vasculature at the skull base is normal in appearance. Calvarium: Unremarkable. Sinuses and mastoids: There is trace mucosal thickening within the maxillary antra. The remaining visualized paranasal sinuses are clear. The mastoid air cells are well pneumatized. Orbits: The bony orbits are grossly intact. IMPRESSION: No acute intracranial abnormality. ACT 112: Negative or not required by law. Electronically signed by: Spike Oconnor M.D. 01/25/2022 5:47 PM Chest X-Ray 01/25/22 19:28 SINGLE VIEW CHEST CLINICAL HISTORY: Respiratory failure. Endotracheal tube placement. FINDINGS: 2 AP, portable, supine chest radiographs are compared to study performed earlier the same day 01/25/2022. An endotracheal tube has been placed. The tip projects approximately 4 cm above the gabriel on the second image. An enteric tube has been placed. The tip projects below the diaphragm over the gastric fundus. The cardiomediastinal silhouette is unremarkable. The lungs and pleural spaces are clear noting bibasilar atelectasis. No pneumothorax is seen. The bony thorax is grossly intact. IMPRESSION: 1. Endotracheal and enteric tubes have been placed as above. 2. The lungs are clear. ACT 112: Negative or not required by law. Electronically signed by: Spike Oconnor M.D. 01/25/2022 7:41 PM Chest X-Ray 01/26/22 05:00 XR chest 1V portable, XR KUB/Abdomen 1 view HISTORY: 21 years-old Male evaluate ETT placment, pneumonitis/pneumonia acute respiratory failure COMPARISON: Chest radiograph 01/25/2022 TECHNIQUE: AP view of the chest with KUB radiograph. FINDINGS: CHEST: Endotracheal tube overlies the midline, 3.4 cm superior to the gabriel. Distal tip of enteric tube projects over the gastric body. Cardiomediastinal and hilar silhouettes are within normal limits. Lungs are mildly hypoinflated. No pneumothorax, pleural effusion, airspace consolidation or overt pulmonary edema. Bones of the chest appear grossly intact. KUB: Air is noted within the stomach, large and small bowel. A catheter projects over the midline pelvis. Air-filled loops of small bowel within the abdominal left upper quadrant measures within the upper limits of normal at approximately 3 cm. No pneumatosis or pneumoperitoneum. No urolith or acute fracture identified. IMPRESSION: 1. Lines and tubes as above. 2. Nonobstructive bowel gas pattern with a few loops of small bowel within the left midabdomen measuring within the upper limits of normal. Findings may represent a mild ileus. 3. No acute process of the chest. ACT 112: Negative or not required by law. The above report was generated using voice recognition software. It may contain grammatical, syntax or spelling errors. Electronically signed by: Ricco Herr M.D. 01/26/2022 9:14 AM KUB X-Ray 01/26/22 05:30 XR chest 1V portable, XR KUB/Abdomen 1 view HISTORY: 21 years-old Male evaluate ETT placment, pneumonitis/pneumonia acute respiratory failure COMPARISON: Chest radiograph 01/25/2022 TECHNIQUE: AP view of the chest with KUB radiograph. FINDINGS: CHEST: Endotracheal tube overlies the midline, 3.4 cm superior to the gabriel. Distal tip of enteric tube projects over the gastric body. Cardiomediastinal and hilar silhouettes are within normal limits. Lungs are mildly hypoinflated. No pneumothorax, pleural effusion, airspace consolidation or overt pulmonary edema. Bones of the chest appear grossly intact. KUB: Air is noted within the stomach, large and small bowel. A catheter projects over the midline pelvis. Air-filled loops of small bowel within the abdominal left upper quadrant measures within the upper limits of normal at approximately 3 cm. No pneumatosis or pneumoperitoneum. No urolith or acute fracture identified. IMPRESSION: 1. Lines and tubes as above. 2. Nonobstructive bowel gas pattern with a few loops of small bowel within the left midabdomen measuring within the upper limits of normal. Findings may represent a mild ileus. 3. No acute process of the chest. ACT 112: Negative or not required by law. The above report was generated using voice recognition software. It may contain grammatical, syntax or spelling errors. Electronically signed by: Ricco Herr M.D. 01/26/2022 9:14 AM I & O Totals 24 Hours 01/25/22 01/26/22 01/27/22 06:59 06:59 06:59 Intake Total 3933.377 / 3933.377 287.527 / 287.527 Output Total 975 / 975 Balance 2958.377 / 2958.377 287.527 / 287.527 Cumulative 01/25/22 15:37 thru 01/26/22 08:34 Intake Total 4220.904 Output Total 975 Balance 3245.904 RT Ventilator Mngmt (Last Documented) Ventilator Ordered Settings Ventilator Support Mode PRVC 01/26/22 08:12 Respiratory Rate 20 01/26/22 08:12 Ventilator Tidal Volume 420 01/26/22 08:12 Setting Minute Ventilation 8.3 01/26/22 08:12 Positive End Expiratory 5 01/26/22 08:12 Pressure Fraction of Inspired Oxygen 30 01/26/22 08:12 Machine Comment Setting changes post ABG 01/25/22 20:38 Ventilator - PT Measurements Respiratory Rate 20 Exhaled Tidal Volume 417 Minute Ventilation 8.3 Peak Inspiratory Airway 16 Pressure Plateau Pressure 13 Respiratory Cycle Inspiratory: 1:2.0 Expiratory Ratio Inspiratory Phase Time 1.0 End-Tidal CO2 35 Static Lung Compliance 52.13 Dynamic Lung Compliance 37.91 Normal Static Lung Compliance 48.00 Patient Measurements Comment RSBI not performed patient still fully sedated and on full vent support at this time. Coding Level of Care Code 25720 Subseq Hosp Care Lvl 3 Diagnoses Impulsive personality disorder F60.3 Attention deficit hyperactivity disorder F90.9 Depression F32.A Drug overdose T50.901A Seizure-like activity R56.9 Suicide attempt by drug ingestion T50.902A
[2022-01-26] MEDS ORDERED: ZIPRASIDONE 20 MG/ML SDV IM PRN (10:22)
--- NOTE | 2022-01-26 11:25 | Hospitalist Progress Note ---
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 and also on the way to the emergency room Poison center was called by the ER physician and was advised to observe in the ICU with close monitoring of electrolytes and EKG Appreciate open hearth helper input and recommendation Remains intubated and sedated with propofol (2) Seizure-like activity: Plan: Has had seizure-like activity First was noted while he was in driving sit at home and the second on on the way to the emergency room Small seizures in the ER x2 controlled with intravenous Ativan of 5 mg Will give Ativan as needed to control seizure Ativan as needed for seizure Awaiting neuro evaluation and EEG Leukocytosis May have aspiration Started on intravenous Unasyn Will change to oral Augmentin when able to finish her course of 5 days (3) Suicide attempt by drug ingestion: Plan: Reportedly has had a break-up with a girlfriend Could be the cause of overdose Await psychiatric input and recommendation (4) Depression: Plan: Has been on Wellbutrin not sure if he has been taking it or not (5) Attention deficit hyperactivity disorder: Plan: In the chart (6) Impulsive personality disorder: Plan: The family members mentioned that he has impulsive disorder DVT prophylax SCD CODE STATUS Full (7) Hypokalemia: Plan: Supplemented and is corrected Plan Discussed with the family members Admission and Anticipated Discharge Date Admission Date: January 25, 2022 Subjective 01/26/2022 Patient remains intubated and sedated Review of Systems Review of Systems: Unobtainable due to endotracheal tube Physical Exam Physical Exam: Remains intubated and sedated Constitutional: well developed, well nourished, + ill appearing and + obese Eyes: PERRL, conjunctivae normal, anicteric sclerae ENMT: external ear and nose normal, oropharynx normal Neck: trachea midline, no thyromegaly Respiratory: no respiratory distress (Minimal shortness of breath at rest) Auscultation: + diminished lung sounds and + crackles (Occasional crackles at the bases) Cardiovascular: Rate/Rhythm: regular rate, regular rhythm and + tachycardic Heart Sounds: normal S1 and normal S2; no murmur Extremities: no edema Gastrointestinal (Abdomen): Inspection/Auscultation: normal bowel sounds; abdomen not distended Percussion/Palpation: abdomen soft; abdomen nontender Neurologic: Sedated on propofol Lymphatic: no cervical or axillary lymphadenopathy Results & Data Results & Data ([facility]) Vital Signs (Past 12 Hours) Vital Signs Temp Pulse Resp BP Pulse Ox FiO2 01/26/22 08:12 81 20 99 30 01/26/22 06:15 37.5 C 85 20 96 01/26/22 06:00 37.5 C 89 20 97 01/26/22 06:00 87/65 L 01/26/22 05:45 37.6 C H 93 H 20 99 01/26/22 05:30 37.7 C H 94 H 20 97 01/26/22 05:30 117/68 01/26/22 05:15 37.7 C H 28 H 01/26/22 05:00 37.7 C H 82 20 98 01/26/22 05:00 100/52 L 01/26/22 04:45 37.8 C H 83 20 98 01/26/22 04:30 37.7 C H 84 20 98 01/26/22 04:30 103/50 L 01/26/22 04:15 37.8 C H 86 20 99 01/26/22 04:00 37.8 C H 85 20 99 01/26/22 04:00 102/54 L 01/26/22 03:45 37.8 C H 87 20 99 01/26/22 03:30 37.8 C H 88 20 99 01/26/22 03:30 99/54 L 01/26/22 03:15 37.9 C H 88 20 98 01/26/22 03:00 37.9 C H 85 20 98 01/26/22 02:45 37.9 C H 89 20 98 01/26/22 02:30 37.9 C H 91 H 20 98 01/26/22 04:00 30 01/26/22 03:10 85 20 98 30 01/26/22 02:15 37.9 C H 94 H 24 98 01/26/22 02:11 37.9 C H 100 H 22 99 01/26/22 02:11 115/65 01/26/22 02:00 37.9 C H 90 20 01/26/22 01:45 37.9 C H 98 H 20 99 01/26/22 01:30 37.9 C H 89 20 97 01/26/22 01:30 102/54 L 01/26/22 01:15 37.8 C H 89 20 97 01/26/22 01:00 37.8 C H 89 20 97 01/26/22 00:48 37.8 C H 95 H 20 98 01/26/22 00:48 114/65 01/26/22 00:45 37.8 C H 95 H 20 97 01/26/22 00:30 37.8 C H 92 H 20 98 01/26/22 00:15 37.7 C H 93 H 20 98 01/26/22 00:00 37.7 C H 93 H 20 98 01/25/22 23:45 37.7 C H 94 H 20 98 01/25/22 23:30 37.6 C H 96 H 20 98 01/25/22 23:30 109/64 01/26/22 00:00 30 01/25/22 23:32 95 H Laboratory Results Short CBC 01/25/22 01/26/22 Range/Units 15:47 04:27 WBC 14.54 H 13.78 H (4.8-10.8) K/ul Hgb 17.6 12.9 L D (14.0-18.0) g/dl Hct 51.1 H 37.0 L (40.1-51.0) % Plt Count 358 206 (130-400) K/uL BMP 01/25/22 01/25/22 01/26/22 15:47 20:31 00:24 Sodium 137 139 139 Potassium 3.3 L 3.8 4.0 Chloride 100 108 H 109 H Carbon Dioxide 12 L 22 23 BUN 11 10 9 Creatinine 1.26 1.12 1.15 Glucose 111 H 92 94 Calcium 9.9 7.8 L D 7.8 L 01/26/22 04:27 Sodium 138 Potassium 3.6 Chloride 109 H Carbon Dioxide 22 BUN 8 Creatinine 1.14 Glucose 89 Calcium 7.8 L Liver Function 01/25/22 01/26/22 Range/Units 15:47 04:27 Total Bilirubin 0.7 0.9 (0.2-1.0) mg/dl AST 20 18 (13-39) U/L ALT 26 18 (7-52) U/L Alkaline Phosphatase 95 66 (34-104) U/L Albumin 5.2 H 3.5 (3.4-5.0) gm/dl Urine 01/25/22 Range/Units 16:08 Urine Color Dark Yellow Urine Appearance Clear (Clear) Urine pH 5.5 (4.5-7.5) Ur Specific [place] 1.031 H (1.000-1.030) Urine Protein Trace H (Negative) Urine Glucose (UA) Negative (Negative) Medications Administered Current Inpatient Medications Fentanyl Citrate (Fentanyl Citrate 100 Mcg/2 Ml Vial) 50 mcg IV Q1H PRN PRN Reason: pain/agitation Stop: 02/08/22 20:14 Last Admin: 01/26/22 10:25 Dose: 50 mcg Ampicillin Sodium/Sulbactam Sodium 3,000 mg/ Sodium Chloride 108 mls @ 200 mls/hr IV Q6H [facility]; Protocol Stop: 02/01/22 19:59 Last Infusion: 01/26/22 08:34 Dose: Infused Propofol (Diprivan) 1,000 mg in 100 mls @ 33.6 mls/hr IV .Q2H59M [facility]; Protocol Stop: 01/28/22 19:44 Last Admin: 01/26/22 10:30 Dose: 50 mcg/kg/min, 33.6 mls/hr Lactated Ringer's (Lr) 1,000 mls @ 115 mls/hr IV .Q8H42M [facility] Stop: 02/24/22 20:29 Last Admin: 01/26/22 04:15 Dose: 115 mls/hr Lorazepam 2 mg/ Syringe 2 mls @ 2 mls/min IV UD PRN PRN Reason: SEIZURE ACTIVITY > 2MIN Stop: 02/24/22 20:14 Miscellaneous (Icu Electrolyte Replacement Protocol) 1 each N/A BID@06,18 [facility]; Protocol Stop: 02/02/22 05:59 Last Admin: 01/26/22 06:52 Dose: 1 each Propofol (Propofol Bolus From Bag) 20 mg IV Q5M PRN PRN Reason: Sedation Stop: 01/28/22 19:44 Last Admin: 01/26/22 02:16 Dose: 20 mg Ziprasidone (Ziprasidone 20 Mg/Ml Sdv) 10 mg IM BID PRN PRN Reason: Agitation Stop: 02/25/22 10:21
--- NOTE | 2022-01-26 11:52 | Communication Note ---
Date of Service: January 26, 2022 Patient took an OD of Wellbutrin, multiple witnessed seizures, remains intubated for airway management. Liaison spoke with family at bedside and they will provide a 302 petitioning statement. Full consult to follow, likely by Dr. Dillard as she assumes clinical responsibility for service later this pm. If patient is extubated and would attempt to leave prior to that assessment, cannot leave AMA. Please notify liaison to assist with 302 warrant.
--- NOTE | 2022-01-26 14:47 | Electroencephalogram ---
EEG Procedure Note Date of Service January 26, 2022 Start / End Times Start Time: 11:38 End Time: 11:58 Referring Physician Jayesh Luke History The patient was admitted after Bupropion overdose and recurrent seizures. Home Medication List Medication Instructions Recorded Confirmed Type bupropion HCl 150 mg 24 hr tablet, 150 mg PO QAM 01/25/22 01/25/22 History extended release Inpatient Medication List Fentanyl Citrate (Fentanyl Citrate 100 Mcg/2 Ml Vial) 50 mcg IV Q1H PRN PRN Reason: pain/agitation Stop: 02/08/22 20:14 Last Admin: 01/26/22 10:25 Dose: 50 mcg Documented By: Admin: 01/26/22 07:57 Dose: 50 mcg Documented By: Admin: 01/26/22 00:52 Dose: 50 mcg Documented By: Admin: 01/25/22 22:05 Dose: 50 mcg Documented By: Admin: 01/25/22 20:29 Dose: 50 mcg Documented By: LENIN Ampicillin Sodium/Sulbactam Sodium 3,000 mg/ Sodium Chloride 108 mls @ 200 mls/hr IV Q6H BRIAN; Protocol Stop: 02/01/22 19:59 Last Infusion: 01/26/22 13:57 Dose: 0 mls/hr Documented By: Admin: 01/26/22 13:23 Dose: 200 mls/hr Documented By: Infusion: 01/26/22 08:34 Dose: 0 mls/hr Documented By: Admin: 01/26/22 07:56 Dose: 200 mls/hr Documented By: Infusion: 01/26/22 03:23 Dose: 0 mls/hr Documented By: Admin: 01/26/22 02:36 Dose: 200 mls/hr Documented By: Infusion: 01/25/22 20:54 Dose: 0 mls/hr Documented By: Admin: 01/25/22 20:21 Dose: 200 mls/hr Documented By: LENIN Propofol (Diprivan) 1,000 mg in 100 mls @ 33.6 mls/hr IV .Q2H59M BRIAN; Protocol Stop: 01/28/22 19:44 Last Admin: 01/26/22 13:39 Dose: 50 mcg/kg/min, 33.6 mls/hr Documented By: KENDRA Co-signed By: HEW Titration: 01/26/22 13:29 Dose: 50 mcg/kg/min, 33.6 mls/hr Documented By: ES Co-signed By: HEW Titration: 01/26/22 10:30 Dose: 50 mcg/kg/min, 33.6 mls/hr Documented By: ES Co-signed By: HEW Admin: 01/26/22 10:30 Dose: 50 mcg/kg/min, 33.6 mls/hr Documented By: ES Co-signed By: HEW Admin: 01/26/22 08:48 Dose: Not Given Documented By: Admin: 01/26/22 08:48 Dose: Not Given Documented By: Admin: 01/26/22 08:47 Dose: Not Given Documented By: Admin: 01/26/22 07:56 Dose: 50 mcg/kg/min, 33.6 mls/hr Documented By: ES Co-signed By: HEW Titration: 01/26/22 07:56 Dose: 45 mcg/kg/min, 30.2 mls/hr Documented By: ES Co-signed By: HEW Admin: 01/26/22 05:18 Dose: 45 mcg/kg/min, 30.2 mls/hr Documented By: CF Co-signed By: TP Titration: 01/26/22 05:18 Dose: 45 mcg/kg/min, 30.2 mls/hr Documented By: CF Co-signed By: TP Admin: 01/26/22 02:15 Dose: 45 mcg/kg/min, 30.2 mls/hr Documented By: LMP Co-signed By: JT Titration: 01/26/22 02:15 Dose: 35 mcg/kg/min, 23.5 mls/hr Documented By: LMP Co-signed By: JT Admin: 01/25/22 22:33 Dose: 35 mcg/kg/min, 23.5 mls/hr Documented By: LMP Co-signed By: LAF Titration: 01/25/22 22:33 Dose: 35 mcg/kg/min, 23.5 mls/hr Documented By: LMP Co-signed By: LAF Admin: 01/25/22 21:09 Dose: 35 mcg/kg/min, 23.5 mls/hr Documented By: TP Co-signed By: LMP Lactated Ringer's (Lr) 1,000 mls @ 115 mls/hr IV .Q8H42M BRIAN Stop: 02/24/22 20:29 Last Admin: 01/26/22 12:42 Dose: 115 mls/hr Documented By: Infusion: 01/26/22 12:42 Dose: 115 mls/hr Documented By: Admin: 01/26/22 04:15 Dose: 115 mls/hr Documented By: Infusion: 01/26/22 04:15 Dose: 115 mls/hr Documented By: Admin: 01/25/22 20:20 Dose: 115 mls/hr Documented By: LENIN Miscellaneous (Icu Electrolyte Replacement Protocol) 1 each N/A BID@06,18 BRIAN; Protocol Stop: 02/02/22 05:59 Last Admin: 01/26/22 06:52 Dose: 1 each Documented By: OBI Propofol (Propofol Bolus From Bag) 20 mg IV Q5M PRN PRN Reason: Sedation Stop: 01/28/22 19:44 Last Admin: 01/26/22 02:16 Dose: 20 mg Documented By: OBI Co-signed By: JOHN Admin: 01/26/22 00:53 Dose: 20 mg Documented By: TP Co-signed By: OBI Admin: 01/25/22 22:05 Dose: 20 mg Documented By: OBI Co-signed By: TP Discontinued Medications Fentanyl Citrate (Fentanyl Citrate 100 Mcg/2 Ml Vial) 50 mcg IV NOW STA Stop: 01/25/22 19:35 Last Admin: 01/25/22 19:34 Dose: 50 mcg Documented By: SHAMEKA Sodium Chloride (Nss 1000ml) 1,000 mls @ 999 mls/hr IV .Q1H1M BRIAN Stop: 01/25/22 17:15 Last Infusion: 01/25/22 17:00 Dose: 0 mls/hr Documented By: Admin: 01/25/22 16:00 Dose: 999 mls/hr Documented By: BRENDA Magnesium Sulfate/Dextrose (Magnesium Sulfate / D5w) 1 gm in 100 mls @ 200 mls/hr IV Q30M BRIAN Stop: 01/25/22 17:30 Last Infusion: 01/25/22 18:03 Dose: 0 mls/hr Documented By: Admin: 01/25/22 17:33 Dose: 200 mls/hr Documented By: Infusion: 01/25/22 17:32 Dose: 0 mls/hr Documented By: Admin: 01/25/22 17:02 Dose: 200 mls/hr Documented By: BRENDA Potassium Chloride (K Enrico / Wtr) 10 meq in 100 mls @ 100 mls/hr IV ONE ONE; Protocol Stop: 01/25/22 17:40 Last Infusion: 01/25/22 18:02 Dose: 0 mls/hr Documented By: Admin: 01/25/22 17:02 Dose: 100 mls/hr Documented By: BRENDA Sodium Chloride (Nss 1000ml) 1,000 mls @ 999 mls/hr IV .Q1H1M ONE Stop: 01/25/22 20:53 Last Infusion: 01/25/22 21:13 Dose: 0 mls/hr Documented By: Admin: 01/25/22 19:30 Dose: 999 mls/hr Documented By: TP Potassium Chloride (K Enrico / Wtr) 10 meq in 100 mls @ 100 mls/hr IV Q1H BRIAN Stop: 01/25/22 23:29 Last Infusion: 01/26/22 00:03 Dose: 0 mls/hr Documented By: Admin: 01/25/22 22:59 Dose: 100 mls/hr Documented By: Infusion: 01/25/22 22:56 Dose: 100 mls/hr Documented By: Admin: 01/25/22 21:56 Dose: 100 mls/hr Documented By: LMP Potassium Chloride (K Enrico / Wtr) 10 meq in 100 mls @ 100 mls/hr IV Q1H BRIAN Stop: 01/26/22 09:29 Last Infusion: 01/26/22 07:51 Dose: 0 mls/hr Documented By: Admin: 01/26/22 06:50 Dose: 100 mls/hr Documented By: Infusion: 01/26/22 06:50 Dose: 100 mls/hr Documented By: Admin: 01/26/22 05:53 Dose: 100 mls/hr Documented By: LMP Lorazepam (Lorazepam 1 Mg/1 Ml Syr) 0.5 mg IV NOW STA; Protocol Stop: 01/25/22 16:24 Last Admin: 01/25/22 16:51 Dose: 0.5 mg Documented By: BRENDA Lorazepam (Lorazepam 1 Mg/1 Ml Syr) 0.5 mg IV NOW STA; Protocol Stop: 01/25/22 18:19 Last Admin: 01/25/22 18:21 Dose: 0.5 mg Documented By: KIMBERLY Miscellaneous (Rapid Sequence Induction Bag) Confirm Administered Dose 1 each .ROUTE .STK-MED ONE Stop: 01/25/22 19:06 Last Admin: 01/25/22 19:14 Dose: 1 each Documented By: SHAMEKA Paige (Patient's Height &/Or Weight Needed) 1 each N/A Q2H BRIAN Stop: 01/25/22 23:30 Last Admin: 01/25/22 20:50 Dose: 1 each Documented By: TP Potassium Chloride (Potassium Chloride 20 Meq/15 Ml Udc) 20 meq PO NOW STA Stop: 01/26/22 06:12 Last Admin: 01/26/22 06:39 Dose: 20 meq Documented By: LMP Propofol (Propofol Iv Emulsion 10 Mg/Ml 100 Ml Vial) Confirm Administered Dose 1,000 mg IV .STK-MED ONE Stop: 01/25/22 19:06 Last Admin: 01/25/22 19:17 Dose: 1,000 mg Documented By: SHAMEKA Co-signed By: PATRICK Description This is a 21 electrode EEG with a single channel dedicated to limited EKG. The electrodes were placed in accordance with the International 10-20 system. Interpretation Throughout this EEG recording, the patient has been intubated and sedated. There is no distinctive posterior rhythm to indicate wakefulness. Background activity shows diffuse slowing with low amplitude, composed of 1/2 to 2 Hz, low amplitude, mostly frontotemporal delta, intermixed with intermittent generalized, low amplitude, 4 to 5 Hz theta, and low amplitude, high-frequency generalized waveforms (this is considered to be secondary to medication effect). Photic stimulations does not induce posterior driving responses. Hyperventilation is not attempted. Tactile stimuli is not performed to test reactivity. There are no electrographic seizures, epileptogenic discharges or asymmetries. Impression: This EEG, recorded in sedated state, is abnormal due to diffuse slowing, consistent with bihemispheric dysfunction, as seen in encephalopathies and sedated state. There is no electrographic seizures or epileptogenic discharge. Clinical Correlation Normal interictal routine EEG does not rule out seizure disorder definitively. Clinical correlation is suggested.
--- NOTE | 2022-01-26 16:38 | Neurology Consultation ---
Date of Consultation January 26, 2022 Assessment & Plan (1) Seizure-like activity: Impression: The patient has had recurrent, short lasting seizure-like activities yesterday, following a bupropion intentional overdosing. Such seizures are most likely reactive to bupropion overdose. The patient has no history of seizure or seizure-like activities. EEG is negative for epileptogenic activity or nonconvulsive seizures. Recommendations: The patient is neurologically stable and can be extubated. Cardiac and neurological monitoring. There is no indication for antiepileptic treatment at this time. If the patient gets seizures after extubation, we will consider keeping her on Keppra for few days. (2) Suicide attempt by drug ingestion: (3) Drug overdose: (4) Attention deficit hyperactivity disorder: (5) Impulsive personality disorder: Plan Thank you for the consultation. History of Present Illness Reason for Consultation: Seizures Requesting Physician: Arcadio Momin MD Attending Physician: Arcadio Momin MD History of Present Illness The patient is a 21-year-old male, with medical history of impulsive disorder, ADHD and depression, who was intentionally overdosed on bupropion, and had cardiac rhythm abnormalities as well as recurrent generalized seizures yesterday. According to chart, the patient informed his parents for overdosing, and drove from [place] to [place]. Parents noticed that the patient was having agitation, flushing of face, tachycardia, with tensing of arms and legs, then following myoclonic movement lasting for 10 to 15 seconds, with clearing of mentation between seizures. The patient has had total of 5 or 6 short lasting seizure-like activity. He was initiated on propofol for sedation as well as for seizures, and intubated in ED and admitted to intensive care unit. There has been no clinical seizure or seizure-like activities since 6 PM yesterday. EEG was completed today, which showed diffuse slowing, as seen in sedated state, but no electrographic seizures or epileptogenic discharge. Patient has no prior history of seizure or seizure-like activities. I have reviewed the patient's chart and discussed the case with admitting physician. Allergies Allergy/AdvReac Type Severity Reaction Status Date / Time No Known Allergies Allergy Unknown Unverified 09/02/02 10:50 Home Medications Medication Instructions Recorded Confirmed Type bupropion HCl 150 mg 24 hr tablet, 150 mg PO QAM 01/25/22 01/25/22 History extended release Patient History Medical History Depression Drug overdose Surgical History No pertinent past surgical history Family History Other Family history non-contributory Social History Smoking Status: Unknown if ever smoked Do You Dip or Chew Tobacco: No; Hx Alcohol Use: Yes Hx Substance Use: No Preferred Language: Martiniquais Communication Ability: intubated Sound Mixer Required: No Beliefs That Will Affect Care: None Current Living Situation: Other Current Living Situation Comment: living in [place] with girl friend broke up came back to [place] Other Information That Helps Us Care for You: No Feels Safe at Home: Yes Assistive Devices: None Review of Systems Review of Systems: Unobtainable due to cognitive status Physical Exam Physical Exam: General Examination: Constitutional: Well developed person, sedated, in no apparent distress. HEENT: Normal exam with inspection. CV: Hearth rhythm is regular. Neck: Supple, no carotid bruits. Lungs: Intubated Abdomen: Soft, non-tender, non-distended. Skin: No rash or ecchymosis. Extremities: No edema or cyanosis NEUROLOGICAL EXAMINATION: Mental Status: Sedated, grimace and moan to painful stimuli. Cranial Nerves: Pupils are 4 mm and reactive to light bilaterally. Positive corneal and gag reflexes. Facial symmetry is preserved during grimacing. Funduscopy: Normal looking optic discs. Motor: The patient withdraws extremities some to painful stimuli. There is no spontaneous movements or posturing. DTRs: 1+ all. No Babinski. Tone: Normal without spasticity or rigidity. Sensory: Unable to assess. Coordination: Unable to assess. Speech: Unable to assess. Gait: Unable to assess. Musculoskeletal: Normal muscle bulk, no atrophy. Results & Data ([facility]) Vital Signs (Past 12 Hours) Vital Signs Temp Pulse Resp BP Pulse Ox O2 Del Method FiO2 01/26/22 15:26 84 20 98 30 01/26/22 13:00 37.9 C H 84 20 105/57 L 98 01/26/22 12:00 38.0 C H 89 20 11/27/22 11:00 37.8 C H 84 20 96 01/26/22 10:30 37.7 C H 88 20 96 01/26/22 10:30 104/61 01/26/22 10:00 37.5 C 85 20 97 01/26/22 10:00 100/53 L 01/26/22 09:30 102/54 L 01/26/22 09:30 37.4 C 82 20 97 01/26/22 09:00 37.3 C 81 20 97 01/26/22 08:00 37.4 C 80 20 98 01/26/22 08:00 100/56 L 01/26/22 07:33 103/58 L 01/26/22 07:33 37.4 C 83 20 99 01/26/22 07:30 37.4 C 82 20 98 01/26/22 07:05 37.4 C 90 21 100 01/26/22 07:05 113/60 01/26/22 07:00 37.4 C 81 20 99 01/26/22 12:00 30 01/26/22 11:00 Mechanical Vent 30 01/26/22 08:00 30 01/26/22 11:14 85 20 97 30 01/26/22 08:12 81 20 99 30 01/26/22 06:15 37.5 C 85 20 96 01/26/22 06:00 37.5 C 89 20 97 01/26/22 06:00 87/65 L 01/26/22 05:45 37.6 C H 93 H 20 99 01/26/22 05:30 37.7 C H 94 H 20 97 01/26/22 05:30 117/68 01/26/22 05:15 37.7 C H 28 H 01/26/22 05:00 37.7 C H 82 20 98 01/26/22 05:00 100/52 L 01/26/22 04:45 37.8 C H 83 20 98 01/26/22 04:30 37.7 C H 84 20 98 01/26/22 04:30 103/50 L Laboratory Results Laboratory Results - last 24 hr 01/25/22 01/25/22 01/25/22 15:47 15:47 15:47 WBC RBC Hgb Hct MCV MCH MCHC RDW Std Deviation RDW Coeff of Silke Plt Count MPV Immature Gran % (Auto) Neut % (Auto) Lymph % (Auto) [place] % (Auto) Eos % (Auto) Baso % (Auto) Neut # (Auto) Lymph # (Auto) [place] # (Auto) Eos # (Auto) Baso # (Auto) Immature Gran # (Auto) PT 10.7 INR 1.0 Sample Site POC pH POC pCO2 POC pO2 POC HCO3 POC Total CO2 POC Base Excess ABG pH ABG pCO2 ABG pO2 ABG HCO3 POC ABG O2 Sat ABG O2 Saturation ABG Base Excess Socrates Test VBG pH VBG pCO2 VBG pO2 VBG HCO3 VBG O2 Saturation VBG Base Excess Oxygen Given O2 Delivery Device POC O2 Rate POC FiO2 Tidal Volume PEEP Sodium 137 Potassium 3.3 L Chloride 100 Carbon Dioxide 12 L Anion Gap 25 H BUN 11 Creatinine 1.26 Est Cr Clr Drug Dosing Not Reportable Est GFR ( Amer) 94.5 Est GFR (Non-Af Amer) 81.6 BUN/Creatinine Ratio 8.7 L Glucose 111 H POC Glucose Lactate Calcium 9.9 Phosphorus Magnesium 2.1 Total Bilirubin 0.7 AST 20 ALT 26 Alkaline Phosphatase 95 Troponin I High Sens 4.5 Total Protein 8.4 H Albumin 5.2 H Globulin 3.2 Albumin/Globulin Ratio 1.6 Urine Color Urine Appearance Urine pH Ur Specific [place] Urine Protein Urine Glucose (UA) Urine Ketones Urine Blood Urine Nitrite Urine Bilirubin Urine Urobilinogen Ur Leukocyte Esterase Urine WBC (Auto) Urine RBC (Auto) U Hyaline Cast (Auto) U Epithel Cells (Auto) Urine Bacteria (Auto) Salicylates < 3.0 L Urine Opiates Screen Ur Methadone, Qual Acetaminophen < 3 L Urine Barbiturates Ur Phencyclidine (PCP) U Amphetamin/Meth Scrn Urine MDEA MDMA (Ecstasy) Screen MDMA Urine MDMA U Benzodiazepines Scrn Ur Cocaine Metabolite U Marijuana (THC) Screen U Marijuana THC Carboxy Drug Screen Comment Ethyl Alcohol mg/dL SARS-CoV-2, RNA, NAAT 01/25/22 01/25/22 01/25/22 16:08 16:08 16:08 WBC RBC Hgb Hct MCV MCH MCHC RDW Std Deviation RDW Coeff of Silke Plt Count MPV Immature Gran % (Auto) Neut % (Auto) Lymph % (Auto) [place] % (Auto) Eos % (Auto) Baso % (Auto) Neut # (Auto) Lymph # (Auto) [place] # (Auto) Eos # (Auto) Baso # (Auto) Immature Gran # (Auto) PT INR Sample Site POC pH POC pCO2 POC pO2 POC HCO3 POC Total CO2 POC Base Excess ABG pH ABG pCO2 ABG pO2 ABG HCO3 POC ABG O2 Sat ABG O2 Saturation ABG Base Excess Socrates Test VBG pH VBG pCO2 VBG pO2 VBG HCO3 VBG O2 Saturation VBG Base Excess Oxygen Given O2 Delivery Device POC O2 Rate POC FiO2 Tidal Volume PEEP Sodium Potassium Chloride Carbon Dioxide Anion Gap BUN Creatinine Est Cr Clr Drug Dosing Est GFR ( Amer) Est GFR (Non-Af Amer) BUN/Creatinine Ratio Glucose POC Glucose Lactate Calcium Phosphorus Magnesium Total Bilirubin AST ALT Alkaline Phosphatase Troponin I High Sens Total Protein Albumin Globulin Albumin/Globulin Ratio Urine Color Dark Yellow Urine Appearance Clear Urine pH 5.5 Ur Specific [place] 1.031 H Urine Protein Trace H Urine Glucose (UA) Negative Urine Ketones Trace H Urine Blood Negative Urine Nitrite Negative Urine Bilirubin 1+ H Urine Urobilinogen Negative Ur Leukocyte Esterase Negative Urine WBC (Auto) 1-5 Urine RBC (Auto) 0-4 U Hyaline Cast (Auto) 1-5 U Epithel Cells (Auto) 0-5 Urine Bacteria (Auto) Negative Salicylates Urine Opiates Screen Neg Ur Methadone, Qual Neg Acetaminophen Urine Barbiturates Neg Ur Phencyclidine (PCP) Neg U Amphetamin/Meth Scrn Neg Urine MDEA Pending MDMA (Ecstasy) Screen Pos H MDMA Pending Urine MDMA Pending U Benzodiazepines Scrn Neg Ur Cocaine Metabolite Neg U Marijuana (THC) Screen Pos H U Marijuana THC Carboxy Pending Drug Screen Comment Pending Ethyl Alcohol mg/dL SARS-CoV-2, RNA, NAAT 01/25/22 01/25/22 01/25/22 16:40 16:40 17:10 WBC RBC Hgb Hct MCV MCH MCHC RDW Std Deviation RDW Coeff of Silke Plt Count MPV Immature Gran % (Auto) Neut % (Auto) Lymph % (Auto) [place] % (Auto) Eos % (Auto) Baso % (Auto) Neut # (Auto) Lymph # (Auto) [place] # (Auto) Eos # (Auto) Baso # (Auto) Immature Gran # (Auto) PT INR Sample Site POC pH POC pCO2 POC pO2 POC HCO3 POC Total CO2 POC Base Excess ABG pH 7.34 L ABG pCO2 41 ABG pO2 117 H ABG HCO3 22 POC ABG O2 Sat ABG O2 Saturation > 100.0 H ABG Base Excess -3.5 Socrates Test Pos VBG pH VBG pCO2 VBG pO2 VBG HCO3 VBG O2 Saturation VBG Base Excess Oxygen Given 3L O2 Delivery Device POC O2 Rate POC FiO2 Tidal Volume PEEP Sodium Potassium Chloride Carbon Dioxide Anion Gap BUN Creatinine Est Cr Clr Drug Dosing Est GFR ( Amer) Est GFR (Non-Af Amer) BUN/Creatinine Ratio Glucose POC Glucose Lactate Calcium Phosphorus Magnesium Total Bilirubin AST ALT Alkaline Phosphatase Troponin I High Sens Total Protein Albumin Globulin Albumin/Globulin Ratio Urine Color Urine Appearance Urine pH Ur Specific [place] Urine Protein Urine Glucose (UA) Urine Ketones Urine Blood Urine Nitrite Urine Bilirubin Urine Urobilinogen Ur Leukocyte Esterase Urine WBC (Auto) Urine RBC (Auto) U Hyaline Cast (Auto) U Epithel Cells (Auto) Urine Bacteria (Auto) Salicylates Urine Opiates Screen Ur Methadone, Qual Acetaminophen Urine Barbiturates Ur Phencyclidine (PCP) U Amphetamin/Meth Scrn Urine MDEA MDMA (Ecstasy) Screen MDMA Urine MDMA U Benzodiazepines Scrn Ur Cocaine Metabolite U Marijuana (THC) Screen U Marijuana THC Carboxy Drug Screen Comment Ethyl Alcohol mg/dL < 10.0 SARS-CoV-2, RNA, NAAT NEGATIVE 01/25/22 01/25/22 01/25/22 20:31 20:31 20:38 WBC RBC Hgb Hct MCV MCH MCHC RDW Std Deviation RDW Coeff of Silke Plt Count MPV Immature Gran % (Auto) Neut % (Auto) Lymph % (Auto) [place] % (Auto) Eos % (Auto) Baso % (Auto) Neut # (Auto) Lymph # (Auto) [place] # (Auto) Eos # (Auto) Baso # (Auto) Immature Gran # (Auto) PT INR Sample Site L Radial POC pH 7.29 L POC pCO2 47 H POC pO2 115 H POC HCO3 22 POC Total CO2 24 POC Base Excess -4.0 ABG pH ABG pCO2 ABG pO2 ABG HCO3 POC ABG O2 Sat 98.0 H ABG O2 Saturation ABG Base Excess Socrates Test Pass VBG pH VBG pCO2 VBG pO2 VBG HCO3 VBG O2 Saturation VBG Base Excess Oxygen Given O2 Delivery Device Ventilator POC O2 Rate 16 POC FiO2 40 Tidal Volume 420 PEEP 5 Sodium 139 Potassium 3.8 Chloride 108 H Carbon Dioxide 22 Anion Gap 9 BUN 10 Creatinine 1.12 Est Cr Clr Drug Dosing 131.8 Est GFR ( Amer) 109.0 Est GFR (Non-Af Amer) 94.1 BUN/Creatinine Ratio 8.9 L Glucose 92 POC Glucose Lactate 1.4 Calcium 7.8 L D Phosphorus Magnesium Total Bilirubin AST ALT Alkaline Phosphatase Troponin I High Sens Total Protein Albumin Globulin Albumin/Globulin Ratio Urine Color Urine Appearance Urine pH Ur Specific [place] Urine Protein Urine Glucose (UA) Urine Ketones Urine Blood Urine Nitrite Urine Bilirubin Urine Urobilinogen Ur Leukocyte Esterase Urine WBC (Auto) Urine RBC (Auto) U Hyaline Cast (Auto) U Epithel Cells (Auto) Urine Bacteria (Auto) Salicylates Urine Opiates Screen Ur Methadone, Qual Acetaminophen Urine Barbiturates Ur Phencyclidine (PCP) U Amphetamin/Meth Scrn Urine MDEA MDMA (Ecstasy) Screen MDMA Urine MDMA U Benzodiazepines Scrn Ur Cocaine Metabolite U Marijuana (THC) Screen U Marijuana THC Carboxy Drug Screen Comment Ethyl Alcohol mg/dL SARS-CoV-2, RNA, NAAT 01/26/22 01/26/22 01/26/22 00:17 00:24 04:27 WBC 13.78 H RBC 4.61 L Hgb 12.9 L D Hct 37.0 L MCV 80.3 MCH 28.0 MCHC 34.9 RDW Std Deviation 35.6 L RDW Coeff of Silke 12.3 Plt Count 206 MPV 8.6 L Immature Gran % (Auto) 0.3 Neut % (Auto) 81.8 Lymph % (Auto) 8.8 [place] % (Auto) 8.9 Eos % (Auto) 0.1 Baso % (Auto) 0.1 Neut # (Auto) 11.27 H Lymph # (Auto) 1.21 [place] # (Auto) 1.22 H Eos # (Auto) 0.02 Baso # (Auto) 0.02 Immature Gran # (Auto) 0.04 H PT INR Sample Site POC pH POC pCO2 POC pO2 POC HCO3 POC Total CO2 POC Base Excess ABG pH ABG pCO2 ABG pO2 ABG HCO3 POC ABG O2 Sat ABG O2 Saturation ABG Base Excess Socrates Test VBG pH VBG pCO2 VBG pO2 VBG HCO3 VBG O2 Saturation VBG Base Excess Oxygen Given O2 Delivery Device POC O2 Rate POC FiO2 Tidal Volume PEEP Sodium 139 Potassium 4.0 Chloride 109 H Carbon Dioxide 23 Anion Gap 7 BUN 9 Creatinine 1.15 Est Cr Clr Drug Dosing 128.4 Est GFR ( Amer) 105.6 Est GFR (Non-Af Amer) 91.1 BUN/Creatinine Ratio 7.8 L Glucose 94 POC Glucose 92 Lactate Calcium 7.8 L Phosphorus Magnesium 2.3 Total Bilirubin AST ALT Alkaline Phosphatase Troponin I High Sens Total Protein Albumin Globulin Albumin/Globulin Ratio Urine Color Urine Appearance Urine pH Ur Specific [place] Urine Protein Urine Glucose (UA) Urine Ketones Urine Blood Urine Nitrite Urine Bilirubin Urine Urobilinogen Ur Leukocyte Esterase Urine WBC (Auto) Urine RBC (Auto) U Hyaline Cast (Auto) U Epithel Cells (Auto) Urine Bacteria (Auto) Salicylates Urine Opiates Screen Ur Methadone, Qual Acetaminophen Urine Barbiturates Ur Phencyclidine (PCP) U Amphetamin/Meth Scrn Urine MDEA MDMA (Ecstasy) Screen MDMA Urine MDMA U Benzodiazepines Scrn Ur Cocaine Metabolite U Marijuana (THC) Screen U Marijuana THC Carboxy Drug Screen Comment Ethyl Alcohol mg/dL SARS-CoV-2, RNA, NAAT 01/26/22 01/26/22 01/26/22 04:27 06:57 12:45 WBC RBC Hgb Hct MCV MCH MCHC RDW Std Deviation RDW Coeff of Silke Plt Count MPV Immature Gran % (Auto) Neut % (Auto) Lymph % (Auto) [place] % (Auto) Eos % (Auto) Baso % (Auto) Neut # (Auto) Lymph # (Auto) [place] # (Auto) Eos # (Auto) Baso # (Auto) Immature Gran # (Auto) PT INR Sample Site POC pH POC pCO2 POC pO2 POC HCO3 POC Total CO2 POC Base Excess ABG pH ABG pCO2 ABG pO2 ABG HCO3 POC ABG O2 Sat ABG O2 Saturation ABG Base Excess Socrates Test VBG pH 7.44 H VBG pCO2 39 VBG pO2 59 VBG HCO3 27 VBG O2 Saturation 92.0 VBG Base Excess 2.3 Oxygen Given O2 Delivery Device POC O2 Rate POC FiO2 Tidal Volume PEEP Sodium 138 Potassium 3.6 Chloride 109 H Carbon Dioxide 22 Anion Gap 7 BUN 8 Creatinine 1.14 Est Cr Clr Drug Dosing 129.5 Est GFR ( Amer) 106.7 Est GFR (Non-Af Amer) 92.1 BUN/Creatinine Ratio 7.0 L Glucose 89 POC Glucose 76 Lactate Calcium 7.8 L Phosphorus 3.5 Magnesium 2.2 Total Bilirubin 0.9 AST 18 ALT 18 Alkaline Phosphatase 66 Troponin I High Sens Total Protein 5.7 L D Albumin 3.5 Globulin 2.2 L Albumin/Globulin Ratio 1.6 Urine Color Urine Appearance Urine pH Ur Specific [place] Urine Protein Urine Glucose (UA) Urine Ketones Urine Blood Urine Nitrite Urine Bilirubin Urine Urobilinogen Ur Leukocyte Esterase Urine WBC (Auto) Urine RBC (Auto) U Hyaline Cast (Auto) U Epithel Cells (Auto) Urine Bacteria (Auto) Salicylates Urine Opiates Screen Ur Methadone, Qual Acetaminophen Urine Barbiturates Ur Phencyclidine (PCP) U Amphetamin/Meth Scrn Urine MDEA MDMA (Ecstasy) Screen MDMA Urine MDMA U Benzodiazepines Scrn Ur Cocaine Metabolite U Marijuana (THC) Screen U Marijuana THC Carboxy Drug Screen Comment Ethyl Alcohol mg/dL SARS-CoV-2, RNA, NAAT Diagnostic Findings Chest X-Ray 01/25/22 16:15 SINGLE VIEW CHEST CLINICAL HISTORY: Overdose. FINDINGS: An AP, portable, upright chest radiograph is obtained. No prior studies are available for comparison at the time of dictation. The cardiomediastinal silhouette is unremarkable. The lungs and pleural spaces are clear noting bibasilar atelectasis. No pneumothorax is seen. The bony thorax is grossly intact. IMPRESSION: No active disease in the chest. ACT 112: Negative or not required by law. Electronically signed by: Spike Oconnor M.D. 01/25/2022 4:[address] 01/25/22 17:09 CT SCAN OF THE BRAIN WITHOUT IV CONTRAST CLINICAL HISTORY: Seizure. Found down. Overdose. COMPARISON STUDY: No priors. TECHNIQUE: Unenhanced axial CT scan of the brain is performed from the vertex to the skull base. A dose lowering technique was utilized adhering to the principles of ALARA. CT DOSE: 614.27 mGy.cm FINDINGS: Brain parenchyma: The brain parenchyma is normal in appearance. There is no hemorrhage, mass effect, or evidence of acute territorial ischemia by CT criteria. Mendoza-white matter differentiation is preserved. No extra-axial fluid collection is seen. Ventricles, sulci, cisterns: Normal in configuration. Intracranial vasculature: The visualized intracranial vasculature at the skull base is normal in appearance. Calvarium: Unremarkable. Sinuses and mastoids: There is trace mucosal thickening within the maxillary antra. The remaining visualized paranasal sinuses are clear. The mastoid air cells are well pneumatized. Orbits: The bony orbits are grossly intact. IMPRESSION: No acute intracranial abnormality. ACT 112: Negative or not required by law. Electronically signed by: Spike Oconnor M.D. 01/25/2022 5:47 PM Chest X-Ray 01/25/22 19:28 SINGLE VIEW CHEST CLINICAL HISTORY: Respiratory failure. Endotracheal tube placement. FINDINGS: 2 AP, portable, supine chest radiographs are compared to study performed earlier the same day 01/25/2022. An endotracheal tube has been placed. The tip projects approximately 4 cm above the gabriel on the second image. An enteric tube has been placed. The tip projects below the diaphragm over the gastric fundus. The cardiomediastinal silhouette is unremarkable. The lungs and pleural spaces are clear noting bibasilar atelectasis. No pneumothorax is seen. The bony thorax is grossly intact. IMPRESSION: 1. Endotracheal and enteric tubes have been placed as above. 2. The lungs are clear. ACT 112: Negative or not required by law. Electronically signed by: Spike Oconnor M.D. 01/25/2022 7:41 PM Chest X-Ray 01/26/22 05:00 XR chest 1V portable, XR KUB/Abdomen 1 view HISTORY: 21 years-old Male evaluate ETT placment, pneumonitis/pneumonia acute respiratory failure COMPARISON: Chest radiograph 01/25/2022 TECHNIQUE: AP view of the chest with KUB radiograph. FINDINGS: CHEST: Endotracheal tube overlies the midline, 3.4 cm superior to the gabriel. Distal tip of enteric tube projects over the gastric body. Cardiomediastinal and hilar silhouettes are within normal limits. Lungs are mildly hypoinflated. No pneumothorax, pleural effusion, airspace consolidation or overt pulmonary edema. Bones of the chest appear grossly intact. KUB: Air is noted within the stomach, large and small bowel. A catheter projects over the midline pelvis. Air-filled loops of small bowel within the abdominal left upper quadrant measures within the upper limits of normal at approximately 3 cm. No pneumatosis or pneumoperitoneum. No urolith or acute fracture identified. IMPRESSION: 1. Lines and tubes as above. 2. Nonobstructive bowel gas pattern with a few loops of small bowel within the left midabdomen measuring within the upper limits of normal. Findings may represent a mild ileus. 3. No acute process of the chest. ACT 112: Negative or not required by law. The above report was generated using voice recognition software. It may contain grammatical, syntax or spelling errors. Electronically signed by: Ricco Herr M.D. 01/26/2022 9:14 AM KUB X-Ray 01/26/22 05:30 XR chest 1V portable, XR KUB/Abdomen 1 view HISTORY: 21 years-old Male evaluate ETT placment, pneumonitis/pneumonia acute respiratory failure COMPARISON: Chest radiograph 01/25/2022 TECHNIQUE: AP view of the chest with KUB radiograph. FINDINGS: CHEST: Endotracheal tube overlies the midline, 3.4 cm superior to the gabriel. Distal tip of enteric tube projects over the gastric body. Cardiomediastinal and hilar silhouettes are within normal limits. Lungs are mildly hypoinflated. No pneumothorax, pleural effusion, airspace consolidation or overt pulmonary edema. Bones of the chest appear grossly intact. KUB: Air is noted within the stomach, large and small bowel. A catheter projects over the midline pelvis. Air-filled loops of small bowel within the abdominal left upper quadrant measures within the upper limits of normal at approximately 3 cm. No pneumatosis or pneumoperitoneum. No urolith or acute fracture identified.
[2022-01-26] MEDS ORDERED: METOCLOPRAMIDE HCL INJ 5 MG/ML 2 ML VIAL IV PRN (20:39)
[2022-01-26] MEDS ORDERED: ONDANSETRON INJ 2 MG/ML 2 ML VIAL IV PRN (20:39)
[2022-01-26] MEDS ORDERED: FAMOTIDINE 20 MG TAB PO ONE (23:08)
[2022-01-27] MEDS: AMPICILLIN/SULBACTAM SOD 3,000 MG in 0.9 % SODIUM CHLORIDE 100 ML IV SCH ×4 (02:31→20:52)
[2022-01-27] MEDS: LACTATED RINGER'S 1,000 ML IV SCH (05:56)
[2022-01-27] MEDS: ACETAMINOPHEN 325 MG TAB PO PRN ×2 (06:24→10:02)
[2022-01-27] MEDS: ICU ELECTROLYTE REPLACEMENT PROTOCOL SCH (06:35)
--- NOTE | 2022-01-27 07:40 | Critical Care Progress Note ---
Date of Service January 27, 2022 Assessment & Plan (1) Impulsive personality disorder: (2) Attention deficit hyperactivity disorder: (3) Depression: (4) Drug overdose: (5) Seizure-like activity: (6) Suicide attempt by drug ingestion: Plan Reason Critically Ill: 21 YOM intubated for seizure activity and airway protection in the setting of Buproprion XR intentional overdose. Seizures are likely related to his Buproprion toxicity at this time, [facility] has been consulted Recommendations: Neuro -overdose on Wellbutrin with associated seizures. No more seizures since coming to the hospital Neurology note reviewed Cardiac - --Prolonged QTC Avoid QT prolonging medication Keep magnesium > 2, potassium greater than 4, phosphorus greater than 3 Respiratory -- S/p VDRF Extubated 01/26/2022 Saturating well on room air GI - Start regular diet RENAL/LYTES - Monitor BUNs/creatinine - No acute needs ENDO - NO acute needs HEME - Monitor H&H ID - -- T-max 38.3 Blood cultures ordered today Continue with antibiotics leukocytosis with questionable aspiration event. He did have a low-grade fever last night. Day #3 Unasyn. --Prophylaxis VTE: Lovenox GI: None Lines: Peripheral Diet: Start regular diet Plan: In/out +1.8 L, urine output 2100 mL Patient is spiking fever with T-max of 38.3. Will do blood culture as well as urine culture Chest x-ray does not show any infiltrate today. Hypomagnesemia and hypokalemia are being replaced. Patient was on IPC's. I will start Lovenox today. No edema in the lower extremity Continue with antibiotics till we have the blood cultures back. DC IV fluids once the patient is able to tolerate p.o. diet Patient is hemodynamically stable to be downgrade to medical floor Please note the above document was generated using voice recognition software. It may contain grammatical, syntax or spelling errors.Any formal questions or concerns about the content, text or information contained within the body of this dictation should be directly addressed to the provider for clarification. Admission and Anticipated Discharge Date Admission Date: January 25, 2022 Subjective Patient seen and examined at bedside. No acute distress, no adverse events over night. Did complain of nausea overnight. Denies any headache. No nausea right now. Poor appetite. No chest pain, no shortness of breath No headache, no blurry vision Review of Systems Review of Systems: All systems reviewed & are unremarkable except as noted in Subjective Physical Exam Physical Exam: Constitutional: No acute distress HEENT: EOMI, PERRLA Respiratory system: Good air entry bilaterally, no wheeze, no rhonchi, no crac kles CVS: S1-S2 positive, no murmurs or gallops, tachycardia Abdomen: Soft, nontender, nondistended, positive bowel sounds x4 Extremities: +2 pulses bilaterally radialis/ dorsalis pedis, no cyanosis, no edema Neuro: Awake alert oriented x3 Psych: Normal mood and affect G/U: No Yusuf Skin: no rashes, warm and dry Lymphatic: no cervical or axillary lymphadenopathy Results & Data Results & Data ([facility]) Vital Signs (Past 12 Hours) Vital Signs Temp Pulse Resp BP Pulse Ox 01/27/22 06:00 38.3 C H 114 H 18 146/93 H 94 01/27/22 05:00 38.2 C H 115 H 19 129/87 93 01/27/22 04:00 38.0 C H 110 H 26 H 120/72 94 01/27/22 03:00 38.2 C H 113 H 24 137/90 92 01/27/22 02:00 38.0 C H 116 H 23 133/86 92 01/27/22 01:00 38.0 C H 114 H 15 123/82 91 01/27/22 00:00 38.1 C H 114 H 23 122/92 92 01/27/22 00:00 110 H 01/26/22 23:00 38.1 C H 109 H 26 H 131/79 93 01/26/22 22:00 38.1 C H 107 H 14 135/81 93 01/26/22 21:00 38.1 C H 103 H 24 93 01/26/22 20:00 37.9 C H 97 H 16 96 01/26/22 20:00 124/87 Laboratory Results 01/26/22 04:27 01/26/22 04:27 Coding Level of Care Code 19140 Subseq Hosp Care Lvl 3 Diagnoses Impulsive personality disorder F60.3 Attention deficit hyperactivity disorder F90.9 Depression F32.A Drug overdose T50.901A Seizure-like activity R56.9 Suicide attempt by drug ingestion T50.90
[2022-01-27 08:10] LABS: Basophils # (auto) 0.04 K/uL (0-0.2); Basophils % (auto) 0.3 %; Eosinophils # (auto) 0.03 K/uL (0-0.50); Eosinophils % (auto) 0.2 %; Hemoglobin 13.3 g/dl (14.0-18.0); Immature Granulocytes # (auto) 0.04 K/uL (0.00-0.02); Immature Granulocytes % (auto) 0.3 %; Lymphocytes # (auto) 0.96 K/uL (1.2-3.4); Lymphocytes % (auto) 6.9 %; Mean Corpuscular Hemoglobin 28.1 pg (25.0-34.0); Mean Corpuscular Volume 80.3 fL (80.0-100.0); Mean Platelet Volume 8.9 fL (9.4-12.4); Monocytes # (auto) 1.04 K/uL (0.24-0.82); Monocytes % (auto) 7.5 %; Neutrophils # (auto) 11.74 K/uL (1.4-6.5); Neutrophils % (auto) 84.8 %; Platelet Count 215 K/uL (130-400); Red Blood Count 4.73 M/uL (4.63-6.08); White Blood Count 13.85 K/ul (4.8-10.8)
[2022-01-27 08:29] LABS: BUN Creatinine Ratio 4.7 (10-20); Calcium 8.7 mg/dl (8.5-10.1); Creatinine Clr Calc Pharmacy 171.7 ml/min; Est GFR (African American) 144.7 ml/min; Est GFR (Non-African American) 124.8 ml/min; Magnesium 1.6 mg/dl (1.7-2.4); Phosphorus 3.5 mg/dl (2.5-4.9); Potassium 3.5 mmol/L (3.5-5.1)
[2022-01-27] MEDS: ENOXAPARIN INJ 40 MG/0.4 ML SYR SQ SCH (09:00)
[2022-01-27] MEDS ORDERED: POTASSIUM CHLORIDE CRTAB 20 MEQ TABCR PO STA (09:18)
[2022-01-27] MEDS: MAGNESIUM SULFATE / D5W 1 GM/100 ML BAG IV SCH ×2 (10:02→11:02)
--- NOTE | 2022-01-27 10:24 | XRay Report ---
XR chest 1V portable CLINICAL HISTORY: Aspiration. COMPARISON STUDY: Chest radiograph January 26, 2022. FINDINGS: Endotracheal and nasogastric tubes have been removed. No consolidation is identified. There is no evidence for pulmonary edema. Cardiomediastinal silhouette is unremarkable. IMPRESSION: No acute cardiopulmonary findings. ACT 112: Negative or not required by law. Electronically signed by: Benito Bean M.D. 01/27/2022 10:23 AM
--- NOTE | 2022-01-27 11:36 | Hospitalist Progress Note ---
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 and also on the way to the emergency room Poison center was called by the ER physician and was advised to observe in the ICU with close monitoring of electrolytes and EKG Appreciate steward/stewardess lounge input and recommendation Remains intubated and sedated with propofol Remains stable medically stable s/p extubation last evening- 01/26/2022 and there is no QT prolongation Awaiting psychiatric evaluation (2) Seizure-like activity: Plan: Has had seizure-like activity First was noted while he was in driving sit at home and the second on on the way to the emergency room Small seizures in the ER x2 controlled with intravenous Ativan of 5 mg Will give Ativan as needed to control seizure Ativan as needed for seizure Awaiting neuro evaluation and EEG-has been negative Appreciate neurology input and recommendation Leukocytosis May have aspiration Started on intravenous Unasyn Will change to oral Augmentin when able to finish her course of 5 days Has been heaving low-grade fever we will continue current antibiotic for 48 hours more (3) Suicide attempt by drug ingestion: Plan: Reportedly has had a break-up with a girlfriend Could be the cause of overdose Await psychiatric input and recommendation (4) Depression: Plan: Has been on Wellbutrin not sure if he has been taking it or not (5) Attention deficit hyperactivity disorder: Plan: In the chart (6) Impulsive personality disorder: Plan: The family members mentioned that he has impulsive disorder DVT prophylax SCD CODE STATUS Full Discussed with the mother (7) Hypokalemia: Plan: Supplemented and is corrected Plan Discussed with the family members Admission and Anticipated Discharge Date Admission Date: January 25, 2022 Subjective 01/26/2022 Patient remains intubated and sedated 01/27/2022 The patient was seen and examined in ICU He is s/p extubation last evening and sitting on a chair without any acute distress Conversing normally and denies any significant symptoms Will be transferred to medical telemetry unit for continued care Review of Systems Review of Systems: All systems reviewed and are unremarkable except as noted below Physical Exam Physical Exam: S/p extubation and sitting on a chair without any acute distress Constitutional: well developed, well nourished and + obese; not ill appearing Eyes: PERRL, conjunctivae normal, anicteric sclerae ENMT: external ear and nose normal, oropharynx normal Neck: trachea midline, no thyromegaly Respiratory: no respiratory distress (Minimal shortness of breath at rest) Auscultation: lungs clear to auscultation bilaterally; no crackles (Occasional crackles at the bases) Cardiovascular: Rate/Rhythm: regular rate, regular rhythm and + tachycardic Heart Sounds: normal S1 and normal S2; no murmur Extremities: no edema Gastrointestinal (Abdomen): Inspection/Auscultation: normal bowel sounds; abdomen not distended Percussion/Palpation: abdomen soft; abdomen nontender Musculoskeletal: No acute arthritis in any joint Neurologic: Alert, awake and oriented x3. No focal sensory or no motor deficit appreciated Lymphatic: no cervical or axillary lymphadenopathy Results & Data Results & Data ([facility]) Vital Signs (Past 12 Hours) Vital Signs Temp Pulse Resp BP Pulse Ox O2 Del Method 01/27/22 11:00 104 H 12 01/27/22 10:07 104 H 26 H 01/27/22 10:07 137/87 01/27/22 11:03 37.7 C H 01/27/22 08:03 139/94 01/27/22 08:03 114 H 19 97 Room Air 01/27/22 07:40 37.9 C H 01/27/22 06:00 38.3 C H 114 H 18 146/93 H 94 01/27/22 05:00 38.2 C H 115 H 19 129/87 93 01/27/22 04:00 38.0 C H 110 H 26 H 120/72 94 01/27/22 03:00 38.2 C H 113 H 24 137/90 92 01/27/22 02:00 38.0 C H 116 H 23 133/86 92 01/27/22 01:00 38.0 C H 114 H 15 123/82 91 01/27/22 00:00 38.1 C H 114 H 23 122/92 92 01/27/22 00:00 110 H Laboratory Results Short CBC 01/27/22 Range/Units 07:44 WBC 13.85 H (4.8-10.8) K/ul Hgb 13.3 L (14.0-18.0) g/dl Hct 38.0 L (40.1-51.0) % Plt Count 215 (130-400) K/uL [facility] 01/27/22 07:44 Sodium 139 Potassium 3.5 Chloride 106 Carbon Dioxide 23 BUN 4 L Creatinine 0.86 Glucose 77 Calcium 8.7 Medications Administered Current Inpatient Medications Acetaminophen (Acetaminophen 325 Mg Tab) 650 mg PO Q4H PRN PRN Reason: Fever >38 or pain Stop: 02/26/22 05:50 Last Admin: 01/27/22 10:02 Dose: 650 mg Enoxaparin Sodium (Enoxaparin Inj 40 Mg/0.4 Ml Syr) 40 mg SQ QAM [facility] Stop: 02/26/22 08:59 Last Admin: 01/27/22 09:00 Dose: 40 mg Ampicillin Sodium/Sulbactam Sodium 3,000 mg/ Sodium Chloride 108 mls @ 200 mls/hr IV Q6H [facility]; Protocol Stop: 02/01/22 19:59 Last Infusion: 01/27/22 10:02 Dose: Infused Lactated Ringer's (Lr) 1,000 mls @ 115 mls/hr IV .Q8H42M [facility] Stop: 02/24/22 20:29 Last Admin: 01/27/22 05:56 Dose: 115 mls/hr Lorazepam 2 mg/ Syringe 2 mls @ 2 mls/min IV UD PRN PRN Reason: SEIZURE ACTIVITY > 2MIN Stop: 02/24/22 20:14 Magnesium Sulfate/Dextrose (Magnesium Sulfate / D5w) 1 gm in 100 mls @ 50 mls/hr IV Q2H [facility] Stop: 01/27/22 13:29 Last Admin: 01/27/22 11:02 Dose: 50 mls/hr Metoclopramide HCl (Metoclopramide Hcl Inj 5 Mg/Ml 2 Ml Vial) 5 mg IV Q6H PRN PRN Reason: Nausea/vomitting- second line Stop: 02/25/22 20:38 Miscellaneous (Icu Electrolyte Replacement Protocol) 1 each N/A BID@06,18 [facility]; Protocol Stop: 02/02/22 05:59 Last Admin: 01/27/22 06:35 Dose: Not Given Ondansetron HCl (Ondansetron Inj 2 Mg/Ml 2 Ml Vial) 4 mg IV Q6H PRN PRN Reason: Nausea And Vomiting Stop: 02/25/22 20:38 Last Admin: 01/27/22 00:17 Dose: 4 mg Ziprasidone (Ziprasidone 20 Mg/Ml Sdv) 10 mg IM BID PRN PRN Reason: Agitation Stop: 02/25/22 10:21
--- NOTE | 2022-01-27 13:52 | Psychiatric Consultation ---
Date of Consultation January 27, 2022 Impression / Recommendations Impression This is a 21 yo man admitted medically following an intentional overdose suicide attempt. Diagnostically consistent with MDD in the context of recent stressors including fight with his girlfriend and financial stress. Diagnostically may also be component of cluster B traits vs intermittent explosive disorder and history of ADHD and ODD. Acute risk of self-harm remains elevated and high given suicide attempt requiring medical admission and intubation in the ICU, major depressive symptoms, history of prior attempt, impulsivity, social isolation, limited insight, high emotional reactivity. Given elevated risk of harm to self they meet criteria for inpatient psychiatric care for diagnostic clarification, safety/stabilization, development of additional coping skills, medication management and disposition/safety planning once medically stable. If they do not agree to voluntary treatment at that time they will meet criteria for 302 status based on severity of suicide attempt and ongoing modifiable risk factors. (1) Suicide attempt by drug ingestion: (2) Impulsive personality disorder: (3) Attention deficit hyperactivity disorder: (4) Depression: Plan -Continue 1-on-1 for risk of harm to self -Do not discharge or allow to leave AMA, 302 petition on chart -Hold psych medications for now -Once medically cleared plan for psychiatric hospitalization (either 201 or 302 status). Psych History Identifying Data 21 yo man who lives in [place] with a history of ADHD, impulse control difficulties, and depression admitted medically following suicide attempt via ingestion of Wellbutrin XL. Psychiatry consulted for recommendations. Chief Complaint "I took it out of anger and financial stress and everything building up". History of Present Illness Farooq is accompanied by his parents, NAZIA and Everardo, who he gave permission to remain present during the interview. He was admitted after taking Wellbutrin XL 150mg tablets as part of an impulsive suicide attempt and then driving to [place] to be near his parents. He texted his girlfriend who notified his parents and his father found him experiencing a seizure shortly after he arrived and parked in [place]. Required intubation due to ongoing seizures as part of toxicity effects from Wellbutrin. He states this was an impulse suicide attempt via Wellbutrin ingestion after a fight with his girlfriend and feeling overwhelmed by anger and financial stress. 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 However, does endorses worsening depression over the past three weeks with more social isolation, decreased motivation to exercise and increased irritability. Frustrated that now he will be missing work but agreeable to inpatient psych hospitalization. He restarted Wellbutrin in November for worsening depression. Long psychiatric history of treatment since age 9 with many therapy experiences and medication trials. Has never been psychiatrically hospitalized. Had one prior suicide attempt about 1.5 years ago via benadryl ingestion of 5-7 tabs and then agreed to start outpatient therapy again. No current outpatient providers. 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 Tumultuous relationship with his girlfriend. Vapes and uses cannabis. Allergies Allergy/AdvReac Type Severity Reaction Status Date / Time No Known Allergies Allergy Unknown Unverified 09/02/02 10:50 Home Medications Medication Instructions Recorded Confirmed Type bupropion HCl 150 mg 24 hr tablet, 150 mg PO QAM 01/25/22 01/25/22 History extended release Family History unknown as adopted Personal History Highest Grade Completed: High School Graduate Beliefs That Will Affect Care: None Patient History Medical History Depression Drug overdose Surgical History No pertinent past surgical history Family History Other Family history non-contributory Social History Smoking Status: Unknown if ever smoked Do You Dip or Chew Tobacco: No; Hx Alcohol Use: Yes Hx Substance Use: No Preferred Language: Japanese Communication Ability: intubated Supervisor Calibration Required: No Beliefs That Will Affect Care: None marital status: Single Current Living Situation: Other Current Living Situation Comment: living in [place] with girl friend broke up came back to [place] Other Information That Helps Us Care for You: No Feels Safe at Home: Yes Assistive Devices: None Physical Exam Psychiatric: Orientation: alert and oriented x 3 Apperance: appropriately dressed and appropriately groomed Eye Contact: good eye contact Motor Behavior: no abnormal motor movements Speech: normal rate/rhythm/volume of speech Affect: + depressed affect Mood: + depressed mood Thought Process: goal directed thought process Thought Content: reality based without delusions Suicidal Thoughts: denies suicidal thoughts Homicidal Thoughts: denies homicidal thoughts Hallucinations: no auditory hallucinations and no visual hallucinations Cognition: attention grossly intact and language grossly intact Estimated Intelligence: consistent with education level Insight: + limited insight Judgement: + limited judgement Vital Signs (Past 24 Hours): Last Vital Signs Temp 37.7 C H 01/27/22 11:03 Pulse 102 H 01/27/22 12:00 Resp 19 01/27/22 12:00 BP 137/87 01/27/22 10:07 Pulse Ox 97 01/27/22 08:03 O2 Del Method 01/27/22 08:03 O2 Flow Rate 3 01/25/22 19:00 FiO2 30 01/26/22 16:00 Review of Systems All systems reviewed & are unremarkable except as noted in HPI & below Results & Data ([facility]) Medications Administered Acetaminophen (Acetaminophen 325 Mg Tab) 650 mg PO Q4H PRN PRN Reason: Fever >38 or pain Stop: 02/26/22 05:50 Last Admin: 01/27/22 10:02 Dose: 650 mg Documented By: Admin: 01/27/22 06:24 Dose: 650 mg Documented By: ROMI Enoxaparin Sodium (Enoxaparin Inj 40 Mg/0.4 Ml Syr) 40 mg SQ QAM [facility] Stop: 02/26/22 08:59 Last Admin: 01/27/22 09:00 Dose: 40 mg Documented By: KENDRA Ampicillin Sodium/Sulbactam Sodium 3,000 mg/ Sodium Chloride 108 mls @ 200 mls/hr IV Q6H [facility]; Protocol Stop: 02/01/22 19:59 Last Infusion: 01/27/22 10:02 Dose: 0 mls/hr Documented By: Admin: 01/27/22 09:00 Dose: 200 mls/hr Documented By: Infusion: 01/27/22 03:11 Dose: 0 mls/hr Documented By: Admin: 01/27/22 02:31 Dose: 200 mls/hr Documented By: Infusion: 01/26/22 21:29 Dose: 0 mls/hr Documented By: Admin: 01/26/22 20:39 Dose: 200 mls/hr Documented By: Infusion: 01/26/22 13:57 Dose: 0 mls/hr Documented By: Admin: 01/26/22 13:23 Dose: 200 mls/hr Documented By: Infusion: 01/26/22 08:34 Dose: 0 mls/hr Documented By: Admin: 01/26/22 07:56 Dose: 200 mls/hr Documented By: Infusion: 01/26/22 03:23 Dose: 0 mls/hr Documented By: Admin: 01/26/22 02:36 Dose: 200 mls/hr Documented By: Infusion: 01/25/22 20:54 Dose: 0 mls/hr Documented By: Admin: 01/25/22 20:21 Dose: 200 mls/hr Documented By: LAF Ondansetron HCl (Ondansetron Inj 2 Mg/Ml 2 Ml Vial) 4 mg IV Q6H PRN PRN Reason: Nausea And Vomiting Stop: 02/25/22 20:38 Last Admin: 01/27/22 00:17 Dose: 4 mg Documented By: CF Coding Level of Care Code 24630 Inpt Consult Level 3 Diagnoses Suicide attempt by drug ingestion T50.902A Impulsive personality disorder F60.3 Attention deficit hyperactivity disorder F90.9 Depression F32.A
[2022-01-27 15:38] LABS: Appearance Urine Clear (Clear); Bacteria Urine Automated Negative (Negative); Bilirubin Urine Negative (Negative); Blood Urine 2+ (Negative); Color Urine Yellow; Glucose Urine UA Negative (Negative); Ketones Urine 3+ (Negative); Leukocyte Esterase Urine Negative (Negative); Nitrite Urine Negative (Negative); Protein Urine Negative (Negative); Specific Gravity Urine 1.014 (1.000-1.030); Urobilinogen Urine Negative (Negative); pH Urine 6.5 (4.5-7.5)
[2022-01-27] MEDS ORDERED: MELATONIN 3 MG TAB PO PRN (18:41)
[2022-01-28] MEDS: AMPICILLIN/SULBACTAM SOD 3,000 MG in 0.9 % SODIUM CHLORIDE 100 ML IV SCH ×3 (03:42→13:23)
[2022-01-28] MEDS: ENOXAPARIN INJ 40 MG/0.4 ML SYR SQ SCH (07:46)
[2022-01-28 08:42] LABS: Basophils # (auto) 0.02 K/uL (0-0.2); Basophils % (auto) 0.3 %; Eosinophils # (auto) 0.09 K/uL (0-0.50); Eosinophils % (auto) 1.3 %; Hematocrit (blood only) 39.7 % (40.1-51.0); Immature Granulocytes # (auto) 0.02 K/uL (0.00-0.02); Immature Granulocytes % (auto) 0.3 %; Lymphocytes # (auto) 1.16 K/uL (1.2-3.4); Lymphocytes % (auto) 16.7 %; Mean Corpuscular Hemoglobin 28.1 pg (25.0-34.0); Mean Corpuscular Hgb Conc 35.3 g/dL (32.0-36.0); Mean Corpuscular Volume 79.7 fL (80.0-100.0); Mean Platelet Volume 8.4 fL (9.4-12.4); Monocytes # (auto) 0.64 K/uL (0.24-0.82); Monocytes % (auto) 9.2 %; Neutrophils # (auto) 5.02 K/uL (1.4-6.5); Neutrophils % (auto) 72.2 %; Platelet Count 198 K/uL (130-400); RDW Coefficient of Variation 11.9 % (11.5-14.5); RDW Standard Deviation 34.1 fL (36.4-46.3); Red Blood Count 4.98 M/uL (4.63-6.08); White Blood Count 6.95 K/ul (4.8-10.8)
[2022-01-28 09:02] LABS: BUN Creatinine Ratio 5.6 (10-20); Calcium 8.9 mg/dl (8.5-10.1); Creatinine Clr Calc Pharmacy 164.1 ml/min; Est GFR (Non-African American) 122.5 ml/min; Potassium 3.7 mmol/L (3.5-5.1)
[2022-01-28] MEDS ORDERED: LORazepam 0.5 MG in SYRINGE 0 ML IV STA (10:00)
--- NOTE | 2022-01-28 13:11 | Psychiatric Consultation ---
Date of Consultation January 28, 2022 Impression / Recommendations Impression This is a 21 yo man admitted medically following an intentional overdose suicide attempt. Diagnostically consistent with MDD in the context of recent stressors including fight with his girlfriend and financial stress. Diagnostically may also be component of cluster B traits vs intermittent explosive disorder and history of ADHD and ODD. Acute risk of self-harm remains elevated and high given suicide attempt requiring medical admission and intubation in the ICU, major depressive symptoms, history of prior attempt, impulsivity, social isolation, limited insight, high emotional reactivity. Given elevated risk of harm to self they meet criteria for inpatient psychiatric care for diagnostic clarification, safety/stabilization, development of additional coping skills, medication management and disposition/safety planning once medically stable. If they do not agree to voluntary treatment at that time they will meet criteria for 302 status based on severity of suicide attempt and ongoing modifiable risk factors. 01/28/22: now medically stable. Will order repeat COVID test. Volunatry for inpt psych, plan to admit to [facility] if COVID test negative. (1) Suicide attempt by drug ingestion: (2) Impulsive personality disorder: (3) Attention deficit hyperactivity disorder: (4) Depression: Plan -Continue 1-on-1 for risk of harm to self -Do not discharge or allow to leave AMA, 302 petition on chart -Hold psych medications for now -Once medically cleared plan for psychiatric hospitalization (either 201 or 302 status). Psych History Identifying Data 21 yo man who lives in [place] with a history of ADHD, impulse control difficulties, and depression admitted medically following suicide attempt via ingestion of Wellbutrin XL. Psychiatry consulted for recommendations. Chief Complaint "I'm ok". History of Present Illness Today continues to endorse depression. Remains agreeable to inpatient admission. Wants to work on improving coping skills especially when he gets angry or has an argument. Hasn't talked to his gf but wants to work on things. Isn't sure where he'll live after hospitalization-[place] vs [place] but wants to be in [place] when his good friend visits in mid January. Feels cannabis helps him to relax and manage anger. Notes he wishes he could walk away from an argument when angry instead of getting dysregulated. Allergies Allergy/AdvReac Type Severity Reaction Status Date / Time banana Allergy Unknown Unknown Verified 01/28/22 09:20 Home Medications Medication Instructions Recorded Confirmed Type amoxicillin 875 mg-potassium 1 tab PO BIDM #7 tabs 01/28/22 Rx clavulanate 125 mg tablet Personal History Highest Grade Completed: High School Graduate Beliefs That Will Affect Care: None Patient History Medical History Depression Drug overdose Surgical History No pertinent past surgical history Family History Other Family history non-contributory Social History Smoking Status: Never smoker Hx Alcohol Use: Yes Hx Substance Use: No Preferred Language: Belgian Communication Ability: Effective Agency Sales Representative Required: No Beliefs That Will Affect Care: None marital status: Single Current Living Situation: Other Current Living Situation Comment: living in [place] with girl friend broke up came back to [place] Feels Safe at Home: Yes Assistive Devices: None Physical Exam Psychiatric: Orientation: alert and oriented x 3 Apperance: appropriately dressed and appropriately groomed Eye Contact: good eye contact Motor Behavior: no abnormal motor movements Speech: normal rate/rhythm/volume of speech Affect: + depressed affect Mood: + depressed mood Thought Process: goal directed thought process Thought Content: reality based without delusions Suicidal Thoughts: denies suicidal thoughts (but serious attempt leading to admission) Homicidal Thoughts: denies homicidal thoughts Hallucinations: no auditory hallucinations and no visual hallucinations Cognition: attention grossly intact and language grossly intact Estimated Intelligence: consistent with education level Insight: + limited insight Judgement: + limited judgement Vital Signs (Past 24 Hours): Last Vital Signs Temp 36.6 C 01/28/22 07:10 Pulse 96 H 01/28/22 11:35 Resp 27 H 01/28/22 11:35 BP 157/100 H 01/28/22 11:35 Pulse Ox 97 01/28/22 11:35 O2 Del Method 01/28/22 11:35 O2 Flow Rate 3 01/25/22 19:00 FiO2 30 01/26/22 16:00 Results & Data (PSY) Medications Administered Acetaminophen (Acetaminophen 325 Mg Tab) 650 mg PO Q4H PRN PRN Reason: Fever >38 or pain Stop: 02/26/22 05:50 Last Admin: 01/27/22 10:02 Dose: 650 mg Documented By: Admin: 01/27/22 06:24 Dose: 650 mg Documented By: CF Enoxaparin Sodium (Enoxaparin Inj 40 Mg/0.4 Ml Syr) 40 mg SQ QAM BRIAN Stop: 02/26/22 08:59 Last Admin: 01/28/22 07:46 Dose: 40 mg Documented By: Admin: 01/27/22 09:00 Dose: 40 mg Documented By: KENDRA Ampicillin Sodium/Sulbactam Sodium 3,000 mg/ Sodium Chloride 108 mls @ 200 mls/hr IV Q6H [facility]AN; Protocol Stop: 02/01/22 19:59 Last Infusion: 01/28/22 08:42 Dose: 0 mls/hr Documented By: Admin: 01/28/22 07:46 Dose: 200 mls/hr Documented By: Infusion: 01/28/22 04:42 Dose: 0 mls/hr Documented By: Admin: 01/28/22 03:42 Dose: 200 mls/hr Documented By: Infusion: 01/27/22 21:38 Dose: 0 mls/hr Documented By: Admin: 01/27/22 20:52 Dose: 200 mls/hr Documented By: Infusion: 01/27/22 15:15 Dose: 0 mls/hr Documented By: Admin: 01/27/22 14:14 Dose: 200 mls/hr Documented By: Infusion: 01/27/22 10:02 Dose: 0 mls/hr Documented By: Admin: 01/27/22 09:00 Dose: 200 mls/hr Documented By: Infusion: 01/27/22 03:11 Dose: 0 mls/hr Documented By: Admin: 01/27/22 02:31 Dose: 200 mls/hr Documented By: Infusion: 01/26/22 21:29 Dose: 0 mls/hr Documented By: Admin: 01/26/22 20:39 Dose: 200 mls/hr Documented By: Infusion: 01/26/22 13:57 Dose: 0 mls/hr Documented By: Admin: 01/26/22 13:23 Dose: 200 mls/hr Documented By: Infusion: 01/26/22 08:34 Dose: 0 mls/hr Documented By: Admin: 01/26/22 07:56 Dose: 200 mls/hr Documented By: Infusion: 01/26/22 03:23 Dose: 0 mls/hr Documented By: Admin: 01/26/22 02:36 Dose: 200 mls/hr Documented By: Infusion: 01/25/22 20:54 Dose: 0 mls/hr Documented By: Admin: 01/25/22 20:21 Dose: 200 mls/hr Documented By: LENIN Melatonin (Melatonin 3 Mg Tab) 3 mg PO HS PRN PRN Reason: Sleep Stop: 02/26/22 18:40 Last Admin: 01/27/22 23:19 Dose: 3 mg Documented By: FREDDIE Ondansetron HCl (Ondansetron Inj 2 Mg/Ml 2 Ml Vial) 4 mg IV Q6H PRN PRN Reason: Nausea And Vomiting Stop: 02/25/22 20:38 Last Admin: 01/27/22 00:17 Dose: 4 mg Documented By: CF Coding Level of Care Code None Diagnoses Suicide attempt by drug ingestion T50.902A Impulsive personality disorder F60.3 Attention deficit hyperactivity disorder F90.9 Depression F32.A
--- NOTE | 2022-01-28 13:42 | Hospitalist Progress Note ---
Date of Service January 28, 2022 Assessment & Plan (1) Drug overdose: Plan: Intentional overdose of Wellbutrin About 25 tablets of 150 mg extended release Wellbutrin was ingested around 2:30 PM(as was reported by the family members) Has had nausea and vomiting Drove from [place] to [place] after the overdose Noted to have seizure at the motor bus driver seat at home and also on the way to the emergency room Poison center was called by the ER physician and was advised to observe in the ICU with close monitoring of electrolytes and EKG Appreciate giver input and recommendation Remains intubated and sedated with propofol Remains stable medically stable s/p extubation last evening- 01/26/2022 and there is no QT prolongation Awaiting psychiatric evaluation-Appreciate input and recommendation Remains medically stable He will be transferred to inpatient psych unit today (2) Seizure-like activity: Plan: Has had seizure-like activity First was noted while he was in driving sit at home and the second on on the way to the emergency room Small seizures in the ER x2 controlled with intravenous Ativan of 5 mg Will give Ativan as needed to control seizure Ativan as needed for seizure Awaiting neuro evaluation and EEG-has been negative Appreciate neurology input and recommendation Leukocytosis May have aspiration Started on intravenous Unasyn Will change to oral Augmentin when able to finish her course of 5 days Has been heaving low-grade fever we will continue current antibiotic for 48 hours more Will give Augmentin for 2 more days (3) Suicide attempt by drug ingestion: Plan: Reportedly has had a break-up with a girlfriend Could be the cause of overdose Await psychiatric input and recommendation As above (4) Depression: Plan: Has been on Wellbutrin not sure if he has been taking it or not (5) Attention deficit hyperactivity disorder: Plan: In the chart (6) Impulsive personality disorder: Plan: The family members mentioned that he has impulsive disorder DVT prophylax SCD CODE STATUS Full Discussed with the mother (7) Hypokalemia: Plan: Supplemented and is corrected Plan Discussed with the family members Admission and Anticipated Discharge Date Admission Date: January 25, 2022 Subjective 01/26/2022 Patient remains intubated and sedated 01/27/2022 The patient was seen and examined in ICU He is s/p extubation last evening and sitting on a chair without any acute distress Conversing normally and denies any significant symptoms Will be transferred to medical telemetry unit for continued care 01/28/2022 The patient was seen and examined in telemetry unit He has been very anxious otherwise stable Denies any symptoms of palpitation, shortness of breath, chest pain, abdominal pain, nausea and or vomiting Review of Systems Review of Systems: All systems reviewed and are unremarkable except as noted below Physical Exam Physical Exam: Lying in bed comfortably Constitutional: well developed, well nourished and + obese; not ill appearing Eyes: PERRL, conjunctivae normal, anicteric sclerae ENMT: external ear and nose normal, oropharynx normal Neck: trachea midline, no thyromegaly Respiratory: no respiratory distress (Minimal shortness of breath at rest) Auscultation: lungs clear to auscultation bilaterally and + diminished lung sounds; no crackles (Occasional crackles at the bases) Cardiovascular: Rate/Rhythm: regular rate, regular rhythm and + tachycardic Heart Sounds: normal S1 and normal S2; no murmur Extremities: no edema Gastrointestinal (Abdomen): Inspection/Auscultation: normal bowel sounds; abdomen not distended Percussion/Palpation: abdomen soft; abdomen nontender Musculoskeletal: No acute arthritis involving any joint Neurologic: normal touch/pain/proprioception and moves all extremities; no focal motor deficits Lymphatic: no cervical or axillary lymphadenopathy Results & Data Results & Data ([facility]) Vital Signs (Past 12 Hours) Vital Signs Temp Pulse Pulse Resp BP Pulse Ox O2 Del Method 01/28/22 11:35 96 H 27 H 157/100 H 97 Room Air 01/28/22 08:00 96 H 01/28/22 07:10 36.6 C 98 H 22 151/106 H 96 Room Air 01/28/22 03:40 36.7 C 01/28/22 03:23 108 H 16 136/92 94 Room Air Laboratory Results Short CBC 01/28/22 Range/Units 08:29 WBC 6.95 (4.8-10.8) K/ul Hgb 14.0 (14.0-18.0) g/dl Hct 39.7 L (40.1-51.0) % Plt Count 198 (130-400) K/uL BMP 01/28/22 08:29 Sodium 139 Potassium 3.7 Chloride 104 Carbon Dioxide 26 BUN 5 L Creatinine 0.90 Glucose 111 H Calcium 8.9 Urine 01/27/22 Range/Units 15:10 Urine Color Yellow Urine Appearance Clear (Clear) Urine pH 6.5 (4.5-7.5) Ur Specific [place] 1.014 (1.000-1.030) Urine Protein Negative (Negative) Urine Glucose (UA) Negative (Negative) Medications Administered Current Inpatient Medications Acetaminophen (Acetaminophen 325 Mg Tab) 650 mg PO Q4H PRN PRN Reason: Fever >38 or pain Stop: 02/26/22 05:50 Last Admin: 01/27/22 10:02 Dose: 650 mg Enoxaparin Sodium (Enoxaparin Inj 40 Mg/0.4 Ml Syr) 40 mg SQ QAM BRIAN Stop: 02/26/22 08:59 Last Admin: 01/28/22 07:46 Dose: 40 mg Ampicillin Sodium/Sulbactam Sodium 3,000 mg/ Sodium Chloride 108 mls @ 200 mls/hr IV Q6H [facility]; Protocol Stop: 02/01/22 19:59 Last Admin: 01/28/22 13:23 Dose: 200 mls/hr Melatonin (Melatonin 3 Mg Tab) 3 mg PO HS PRN PRN Reason: Sleep Stop: 02/26/22 18:40 Last Admin: 01/27/22 23:19 Dose: 3 mg Metoclopramide HCl (Metoclopramide Hcl Inj 5 Mg/Ml 2 Ml Vial) 5 mg IV Q6H PRN PRN Reason: Nausea/vomitting- second line Stop: 02/25/22 20:38 Ondansetron HCl (Ondansetron Inj 2 Mg/Ml 2 Ml Vial) 4 mg IV Q6H PRN PRN Reason: Nausea And Vomiting Stop: 02/25/22 20:38 Last Admin: 01/27/22 00:17 Dose: 4 mg Ziprasidone (Ziprasidone 20 Mg/Ml Sdv) 10 mg IM BID PRN PRN Reason: Agitation Stop: 02/25/22 10:21
[2022-01-28] MEDS ORDERED: AMOXICILLIN/CLAVULANATE 875 MG TAB PO SCH (17:00)
--- NOTE | 2022-01-28 18:48 | Discharge Summary ---
Date of Service January 28, 2022 Admission HPI Per Admitting Provider He is a 21-year-old male with significant past medical history of Bowers attention deficit hyperactivity disorder, allergic rhinitis, atopic dermatitis, chronic allergic conjunctivitis and impulsive disorder apparently took an overdose of 25 tablets of 150 mg long-acting Wellbutrin around 2:30 PM. He took this overdose in [place] likely in front office girlfriend and he drove to [place]. Reported to have nausea and vomiting on the way or in [place]. The father saw him seizing at the peg driver seat and [place] and then he was brought to the emergency room via EMS. He reportedly just had a break-up with his girlfriend and even expressed thoughts of wanting to hurt himself. No history of self injury except minor bruising involving the right dorsum of hand and no tongue bite, frothing the mouth, incontinence of bowel or stool but he was very drowsy following the episode of seizure. The paramedics saw him seizing in the ambulance. In the ER he has had 2 episodes of small seizures controlled with 0.5 mg of IV Ativan x2. He likely has aspiration following the last seizure and he was noted to be tachycardic with increasing white count. He was admitted to ICU for continued care. The poison center was called in by the ER physician was advised to observe, look for any change in EKG and give Ativan as needed for seizures. Admission Exam Per Admitting Provider Physical Exam: Lying in bed obtunded. Minimal restlessness at times. No shortness of breath at rest Constitutional: well developed, well nourished, + ill appearing and + obese Eyes: PERRL, conjunctivae normal, anicteric sclerae ENMT: external ear and nose normal, oropharynx normal Neck: trachea midline, no thyromegaly Respiratory: + respiratory distress (Minimal shortnes s of breath at rest) Auscultation: + diminished lung sounds and + crackles (Occasional crackles at the bases) Cardiovascular: Rate/Rhythm: regular rate, regular rhythm and + tachycardic Heart Sounds: normal S1 and normal S2; no murmur Extremities: no edema Gastrointestinal (Abdomen): Inspection/Auscultation: normal bowel sounds; abdomen not distended Percussion/Palpation: abdomen soft; abdomen nontender Musculoskeletal: No acute arthritis involving any joint Neurologic: Alert and awake. Drowsy. Moves all limbs with occasional jerking movement involving the limbs. Trying to communicate but cannot do it due to drowsiness. Lymphatic: no cervical or axillary lymphadenopathy Principal Diagnosis Intentional drug overdose,Possible aspiration Pneumonia,Attention deficit hyperactivity, impulsive personality disorder Discharge Exam Lying in bed comfortably Constitutional well developed, well nourished and + obese; not ill appearing Eyes PERRL, conjunctivae normal, anicteric sclerae ENMT external ear and nose normal, oropharynx normal Neck trachea midline, no thyromegaly Respiratory no respiratory distress (Minimal shortness of breath at rest) Auscultation: lungs clear to auscultation bilaterally and + diminished lung sounds; no crackles (Occasional crackles at the bases) Cardiovascular Rate/Rhythm: regular rate, regular rhythm and + tachycardic Heart Sounds: normal S1 and normal S2; no murmur Extremities: no edema Gastrointestinal (Abdomen) Inspection/Auscultation: normal bowel sounds; abdomen not distended Percussion/Palpation: abdomen soft; abdomen nontender Neurologic normal touch/pain/proprioception and moves all extremities; no focal motor deficits Lymphatic no cervical or axillary lymphadenopathy Discharge Data Allergies Allergy/AdvReac Type Severity Reaction Status Date / Time tree nut Allergy Severe Anaphylaxis Unverified 01/28/22 17:58 banana Allergy Unknown Unknown Verified 01/28/22 09:20 Consultations 01/25/22 17:07 ED Decision to Admit Stat 01/25/22 18:12 Consult Railroad Commissioner Routine 01/25/22 18:44 Consult Psychiatry Routine 01/25/22 19:53 Consult Neurology Routine 01/25/22 21:22 Consult Behavioral Health Liaison Routine Ordered Studies 01/25/22 17:[address] [CT head/brain wo con] Stat Hospital Course (1) Drug overdose: Intentional overdose of Wellbutrin About 25 tablets of 150 mg extended release Wellbutrin was ingested around 2:30 PM(as was reported by the family members) Has had nausea and vomiting Drove from [place] to [place] after the overdose Noted to have seizure at the peg driver seat at home and also on the way to the emergency room Poison center was called by the ER physician and was advised to observe in the ICU with close monitoring of electrolytes and EKG Appreciate journeyman mechanic input and recommendation Remains intubated and sedated with propofol Remains stable medically stable s/p extubation last evening- 01/26/2022 and there is no QT prolongation Awaiting psychiatric evaluation-Appreciate input and recommendation Remains medically stable He will be transferred to inpatient psych unit today (2) Seizure-like activity: Has had seizure-like activity First was noted while he was in driving sit at home and the second on on the way to the emergency room Small seizures in the ER x2 controlled with intravenous Ativan of 5 mg Will give Ativan as needed to control seizure Ativan as needed for seizure Awaiting neuro evaluation and EEG-has been negative Appreciate neurology input and recommendation Leukocytosis May have aspiration Started on intravenous Unasyn Will change to oral Augmentin when able to finish her course of 5 days Has been heaving low-grade fever we will continue current antibiotic for 48 hours more Will give Augmentin for 2 more days (3) Suicide attempt by drug ingestion: Reportedly has had a break-up with a girlfriend Could be the cause of overdose Await psychiatric input and recommendation As above (4) Depression: Has been on Wellbutrin not sure if he has been taking it or not (5) Attention deficit hyperactivity disorder: In the chart (6) Impulsive personality disorder: The family members mentioned that he has impulsive disorder DVT prophylax SCD CODE STATUS Full Discussed with the mother (7) Hypokalemia: Supplemented and is corrected Plan Discussed with the family members Total Time Total Time Spent Total Time Spent (In Minutes): 35 minutes Discharge Plan Discharge Items Patient Disposition: Transfer Behavioral Health Fac Reason For Visit: OVERDOSE Discharge Diagnosis: Intentional drug overdose,Possible aspiration Pneumonia,Attention deficit hyperactivity, impulsive personality disorder Condition on Discharge: Good Activity: Resume your previous activity Non-emergency contact: Primary Care Provider Call non-emergency contact if: you have any medication questions and your symptoms worsen Follow-up/Referrals: Gio Rasheed MD [Primary Care Provider] - (Please make an appointment with your primary care provider within 7 days following discharge from the facility) Diet: Regular Addtl Attending Provider Instructions: He was transferred to inpatient psych unit His current inpatient medications are as below: Acetaminophen (Acetaminophen 325 Mg Tab) 650 mg PO Q4H PRN PRN Reason: Fever >38 or pain Stop: 02/26/22 05:50 Last Admin: 01/27/22 10:02 Dose: 650 mg Enoxaparin Sodium (Enoxaparin Inj 40 Mg/0.4 Ml Syr) 40 mg SQ QAM BRIAN Stop: 02/26/22 08:59 Last Admin: 01/28/22 07:46 Dose: 40 mg Ampicillin Sodium/Sulbactam Sodium 3,000 mg/ Sodium Chloride 108 mls @ 200 mls/hr IV Q6H [facility]; Protocol Stop: 02/01/22 19:59 Last Admin: 01/28/22 13:23 Dose: 200 mls/hr Melatonin (Melatonin 3 Mg Tab) 3 mg PO HS PRN PRN Reason: Sleep Stop: 02/26/22 18:40 Last Admin: 01/27/22 23:19 Dose: 3 mg Metoclopramide HCl (Metoclopramide Hcl Inj 5 Mg/Ml 2 Ml Vial) 5 mg IV Q6H PRN PRN Reason: Nausea/vomitting- second line Stop: 02/25/22 20:38 Ondansetron HCl (Ondansetron Inj 2 Mg/Ml 2 Ml Vial) 4 mg IV Q6H PRN PRN Reason: Nausea And Vomiting Stop: 02/25/22 20:38 Last Admin: 01/27/22 00:17 Dose: 4 mg Ziprasidone (Ziprasidone 20 Mg/Ml Sdv) 10 mg IM BID PRN PRN Reason: Agitation Stop: 02/25/22 10:21 Pending Studies at Discharge: No Stand-Alone Forms: [facility], Suicide Prevention Resources Medications and DC Order Prescriptions: New amoxicillin-pot clavulanate 875-125 mg Tablet 1 tab PO BIDM Qty: 7 0RF Discontinued bupropion HCl 150 mg tablet extended release 24 hr 150 mg PO QAM Discharge Orders: Discharge Order (Routine); Ordered 01/28/22 Ordered By: Arcadio Momin Admission Data Admit Date/Time: 01/25/22 18:10 Attending Provider: Arcadio Momin Admit Provider: Arcadio Momin Primary Care Provider: Gio Rasheed Other Providers: Arcadio Momin ; Eron Rosenberg ; Barbra Dillard ; Jacklyn Calvert ; Ladonna Alaniz ; Maxi Figueredo ; Jonathan Lutz ; Liza Johnson ; Salvador Pretty ; Liza Boss ; Joseph Madden ; Koby Tran ; Rosa M Short ; Salvador Galvez Other Interventions: Discharge Summary Assessment (RN) Last Done: 01/28/22 14:45
[2022-01-29 18:32] LABS: MDA negative; MDEA negative; MDMA (Ecstasy) Urine, Confirm negative; Marijuana Quant, GCMS Urine 102 ng/mL (<5)
== END 2022-01-28 14:48 | DRG 917 ==
LOC: ED 15:47 → ASUINP 18:10 → 1E 19:52 → 2E 01-27 20:41

== ENCOUNTER 2022-01-28 11:21 | Inpatient (IN) ==
[2022-01-28] MEDS ORDERED: ALUMINUM/MAGNESIUM SUSP 30 ML UDC PO PRN (14:07)
[2022-01-28] MEDS ORDERED: MAGNESIUM HYDROXIDE SUSP 30 ML UDC PO PRN (14:07)
[2022-01-28] MEDS ORDERED: SODIUM CHLORIDE 0.65% NA SOLN 45 ML (OCEAN) PRN (14:07)
[2022-01-28] MEDS ORDERED: BISMUTH SUBSALICYLATE LIQD 236 ML PO PRN (14:07)
[2022-01-28] MEDS ORDERED: ACETAMINOPHEN 325 MG TAB PO PRN (14:07)
[2022-01-28] MEDS ORDERED: hydrOXYzine HCl 25 MG TAB PO PRN ×2 (14:07)
[2022-01-28] MEDS ORDERED: FLUARIX QUADRIVALENT 0.5 ML SYR IM ONE (16:28)
[2022-01-28] MEDS: AMOXICILLIN/CLAVULANATE 875 MG TAB PO SCH (17:23)
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
[2022-01-29] MEDS: AMOXICILLIN/CLAVULANATE 875 MG TAB PO SCH ×2 (08:56→17:28)
[2022-01-29] MEDS: cloNIDine HCL 0.1 MG TAB PO SCH (17:28)
[2022-01-29] MEDS: traZODone HCL 50 MG TAB PO SCH (22:59)
--- NOTE | 2022-01-30 08:46 | Psychiatric Progress Note ---
Date of Service January 30, 2022 Impression / Recommendations Impression Farooq is a 21 year old with a history of childhood diagnosed ADHD, ODD, high emotional reactivity and behavioral dysregulation as well as depression and intermittent explosive disorder who was admitted following an impulsive suicide attempt via significant Wellbutrin overdose requiring medical admission and intubation. Diagnostically consistent with major depressive disorder as well as intermittent explosive disorder and high emotional reactivity at impulsivity. The patient is deemed unstable and requires psychiatric hospitalization for diagnostic clarification, safety and stabilization, medication management and development of further coping skills. MNPR due to history of high emotional reactivity and behavioral dysregulation 01/30/22: Steady progress, continuing to discuss seriousness of suicide attempt and potential coping skills and strategies to use in the future, continuing with insight-oriented approach regarding anger management and impulsivity. He is not interested in trying an SSRI nor in increasing the dose of clonidine to BID to help with impulsivity. (1) Major depressive disorder with current active episode: (2) Suicide attempt by drug ingestion: (3) Intermittent explosive disorder in adult: (4) Attention deficit hyperactivity disorder: Plan 01/30/22: Continue with clonidine 0.1mg qevening and trazodone 50mg qhs. 01/29/22: The patient was admitted to the [facility] ([facility] mental health unit) on q15 min checks (behavioral with suicide precautions) for safety. The patient will participate in group, recreational, and milieu therapies and will be offered additional individual and family sessions as clinically appropriate. 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 ) Risk Factors Assessment Male: Yes : No Do You Have Access To A Gun?: No Health Problems: No Mental Health Diagnoses: Yes Previous Attempt: Yes Previous Psychiatric Hospitalization: No Protective Factors Assessment Employed: Yes Stable Relationships: Yes Supportive Family: Yes Interval History Identifying Information STARLA PERALTA is a 21-year-old M who currently lives in [place] with his girlfriend, has a history of ADHD, ODD, IED, depression, and was admitted on 01/28/22 15:02 on a 201 voluntary commitment for suicide attempt via ingestion of Wellbutrin XL requiring ICU admission and intubation. Chief Complaint "My sleep was good". Review of Systems Sleep Information Total Hours of Sleep: 6 Meal Information Percent Meal Consumed - Breakfast: 90 Percent Meal Consumed - Lunch: 100 Percent Meal Consumed - Dinner: 100 Subjective Subjective Patient was seen & assessed and interval progress reviewed with treatment team nursing and social work. Attending groups and interactive with peers. Started clonidine yesterday evening and felt this helped to "calm me down" and liked that trazodone helped him sleep. Denies any side effects from the medication. Feels his mood is improving. Physical Exam Psychiatric Orientation: alert and oriented x 3 Apperance: appropriately dressed and appropriately groomed Eye Contact: good eye contact Motor Behavior: no abnormal motor movements Speech: normal rate/rhythm/volume of speech Affect: + constricted affect Mood: + anxious mood Thought Process: goal directed thought process Thought Content: reality based without delusions Suicidal Thoughts: denies suicidal thoughts (but serious attempt prior to admi ssion), denies suicidal plan and denies suicidal intent Homicidal Thoughts: denies homicidal thoughts Hallucinations: no auditory hallucinations and no visual hallucinations Cognition: recent memory grossly intact, remote memory grossly intact, attention grossly intact and language grossly intact Estimated Intelligence: consistent with education level Insight: + fair insight Judgement: + limited judgement Vital Signs (Past 24 Hours) Last Vital Signs Temp 36.8 C 01/30/22 06:32 Pulse 89 01/30/22 06:32 Resp 16 01/30/22 06:32 BP 97/66 L 01/30/22 06:32 O2 Del Method 01/28/22 15:57 Results & Data ([facility]) Current Inpatient Medications Current Inpatient Medications: Current Inpatient Medications Acetaminophen (Acetaminophen 325 Mg Tab) 650 mg PO Q4H PRN PRN Reason: Headache or Minor Fever Stop: 02/27/22 14:06 Al Hydrox/Mg Hydrox/Simethicone (Aluminum/Magnesium Susp 30 Ml Udc) 30 ml PO Q4H PRN PRN Reason: GI Upset Stop: 02/27/22 14:06 Amoxicillin/Clavulanate Potassium (Amoxicillin/Clavulanate 875 Mg Tab) 1 tab PO BIDM BRIAN Stop: 01/30/22 17:44 Last Admin: 01/29/22 17:28 Dose: 1 tab Bismuth Subsalicylate (Bismuth Subsalicylate Liqd 236 Ml) 15 ml PO PRN PRN PRN Reason: Loose Stool Stop: 02/27/22 14:06 Clonidine HCl (Clonidine Hcl 0.1 Mg Tab) 0.1 mg PO PM3S BRIAN Stop: 02/28/22 16:59 Last Admin: 01/29/22 17:28 Dose: 0.1 mg Hydroxyzine HCl (Hydroxyzine Hcl 25 Mg Tab) 50 mg PO HSZ PRN PRN Reason: Insomnia Stop: 02/27/22 14:06 Last Admin: 01/28/22 22:09 Dose: 50 mg Hydroxyzine HCl (Hydroxyzine Hcl 25 Mg Tab) 25 mg PO Q4H PRN PRN Reason: Anxiety Stop: 02/27/22 14:06 Magnesium Hydroxide (Magnesium Hydroxide Susp 30 Ml Udc) 30 ml PO DAILY PRN PRN Reason: Constipation Stop: 02/27/22 14:06 Sodium Chloride (Sodium Chloride 0.65% Na Soln 45 Ml ([place])) 1 - 2 sprays NA PRN PRN PRN Reason: Nasal Dryness/Congestion Stop: 02/27/22 14:06 Trazodone HCl (Trazodone Hcl 50 Mg Tab) 50 mg PO HS BRIAN Stop: 02/28/22 21:59 Last Admin: 01/29/22 22:59 Dose: 50 mg Post Discharge Appointments Primary Care Physician Name Of Family Doctor: Laz Rasheed Provider Appointment Comment: Please follow-up with your PCP as needed.
[2022-01-30] MEDS: AMOXICILLIN/CLAVULANATE 875 MG TAB PO SCH (09:00)
[2022-01-30] MEDS: cloNIDine HCL 0.1 MG TAB PO SCH (17:30)
[2022-01-30] MEDS: traZODone HCL 50 MG TAB PO SCH (21:02)
--- NOTE | 2022-01-31 16:10 | Psychiatric Progress Note ---
Date of Service January 31, 2022 Impression / Recommendations Impression Farooq is a 21 year old with a history of childhood diagnosed ADHD, ODD, high emotional reactivity and behavioral dysregulation as well as depression and intermittent explosive disorder who was admitted following an impulsive suicide attempt via significant Wellbutrin overdose requiring medical admission and intubation. Diagnostically consistent with major depressive disorder as well as intermittent explosive disorder and high emotional reactivity at impulsivity. The patient is deemed unstable and requires psychiatric hospitalization for diagnostic clarification, safety and stabilization, medication management and development of further coping skills. MNPR due to history of high emotional reactivity and behavioral dysregulation 01/31/22: Steady progress, mood is improving, continuing to assess and ensure improvement persists and is not a flight into health. Tolerating his medications well. Remains interested in using cannabis in the outpatient setting. Ongoing motivational interviewing. (1) Major depressive disorder with current active episode: (2) Suicide attempt by drug ingestion: (3) Intermittent explosive disorder in adult: (4) Attention deficit hyperactivity disorder: Plan 01/31/22: Continue with current medications and treatment plan. 01/30/22: Continue with clonidine 0.1mg qevening and trazodone 50mg qhs. 01/29/22: The patient was admitted to the [facility] ([facility] mental health unit) on q15 min checks (behavioral with suicide precautions) for safety. The patient will participate in group, recreational, and milieu therapies and will be offered additional individual and family sessions as clinically appropriate. 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 ) Risk Factors Assessment Male: Yes : No Do You Have Access To A Gun?: No Health Problems: No Mental Health Diagnoses: Yes Previous Attempt: Yes Previous Psychiatric Hospitalization: No Protective Factors Assessment Employed: Yes Stable Relationships: Yes Supportive Family: Yes Interval History Identifying Information STARLA PERALTA is a 21-year-old M who currently lives in [place] with his girlfriend, has a history of ADHD, ODD, IED, depression, and was admitted on 03/30/21 15:02 on a 201 voluntary commitment for suicide attempt via ingestion of Wellbutrin XL requiring ICU admission and intubation. Chief Complaint "The meeting was pretty good". Review of Systems Sleep Information Total Hours of Sleep: 8 Meal Information Percent Meal Consumed - Breakfast: 100 Percent Meal Consumed - Lunch: 90 Percent Meal Consumed - Dinner: 100 Subjective Subjective Patient was seen & assessed and interval progress reviewed with treatment team nursing and social work. Attending groups and interactive with peers. Family meeting held which he attended along with his parents and his girlfriend. He plans to stay with his dad locally for a few weeks after he leaves the hospital. Feels his mood is stable. Sleep is improving. No side effects from the medications and he likes the clonidine and trazodone feels they are working well. He is looking forward to participating in an IOP after he leaves the hospital to learn more skills to help with his impulsivity, mood and episodic anger. Physical Exam Psychiatric Orientation: alert and oriented x 3 Apperance: appropriately dressed and appropriately groomed Eye Contact: good eye contact Motor Behavior: no abnormal motor movements Speech: normal rate/rhythm/volume of speech Affect: + constricted affect Mood: no depressed mood and no anxious mood Thought Process: goal directed thought process Thought Content: reality based without delusions Suicidal Thoughts: denies suicidal thoughts (but serious attempt prior to admission), denies suicidal plan and denies suicidal intent Homicidal Thoughts: denies homicidal thoughts Hallucinations: no auditory hallucinations and no visual hallucinations Cognition: recent memory grossly intact, remote memory grossly intact, attention grossly intact and language grossly intact Estimated Intelligence: consistent with education level Insight: + fair insight Judgement: + fair judgement Vital Signs (Past 24 Hours) Last Vital Signs Temp 36.4 C L 01/31/22 06:00 Pulse 93 H 01/31/22 06:35 Resp 16 01/31/22 06:00 BP 110/65 01/31/22 06:35 Pulse Ox 97 01/31/22 06:00 O2 Del Method 01/31/22 06:00 [facility] Current Inpatient Medications Current Inpatient Medications: Current Inpatient Medications Acetaminophen (Acetaminophen 325 Mg Tab) 650 mg PO Q4H PRN PRN Reason: Headache or Minor Fever Stop: 02/27/22 14:06 Last Admin: 01/31/22 10:25 Dose: 650 mg Al Hydrox/Mg Hydrox/Simethicone (Aluminum/Magnesium Susp 30 Ml Udc) 30 ml PO Q4H PRN PRN Reason: GI Upset Stop: 02/27/22 14:06 Bismuth Subsalicylate (Bismuth Subsalicylate Liqd 236 Ml) 15 ml PO PRN PRN PRN Reason: Loose Stool Stop: 02/27/22 14:06 Clonidine HCl (Clonidine Hcl 0.1 Mg Tab) 0.1 mg PO PM3S BRIAN Stop: 02/28/22 16:59 Last Admin: 01/30/22 17:30 Dose: 0.1 mg Hydroxyzine HCl (Hydroxyzine Hcl 25 Mg Tab) 50 mg PO HSZ PRN PRN Reason: Insomnia Stop: 02/27/22 14:06 Last Admin: 01/28/22 22:09 Dose: 50 mg Hydroxyzine HCl (Hydroxyzine Hcl 25 Mg Tab) 25 mg PO Q4H PRN PRN Reason: Anxiety Stop: 02/27/22 14:06 Magnesium Hydroxide (Magnesium Hydroxide Susp 30 Ml Udc) 30 ml PO DAILY PRN PRN Reason: Constipation Stop: 02/27/22 14:06 Sodium Chloride (Sodium Chloride 0.65% Na Soln 45 Ml ([place])) 1 - 2 sprays NA PRN PRN PRN Reason: Nasal Dryness/Congestion Stop: 02/27/22 14:06 Trazodone HCl (Trazodone Hcl 50 Mg Tab) 50 mg PO HS BRIAN Stop: 02/28/22 21:59 Last Admin: 01/30/22 21:02 Dose: 50 mg Post Discharge Appointments Primary Care Physician Name Of Family Doctor: Laz Rasheed Primary Care Date of Appointment with PCP: 02/05/22 Time of Appointment with PCP: 9:45 AM Provider Appointment Comment: Al Willson, SAMUEL Zamora Contact Information Discharge Discharge Address: [facility] [address], [place] [address]
[2022-01-31] MEDS: cloNIDine HCL 0.1 MG TAB PO SCH (17:34)
[2022-01-31] MEDS: traZODone HCL 50 MG TAB PO SCH (22:33)
--- NOTE | 2022-02-01 12:57 | Psychiatric Progress Note ---
Date of Service February 01, 2022 Impression / Recommendations Impression Farooq is a 21 year old with a history of childhood diagnosed ADHD, ODD, high emotional reactivity and behavioral dysregulation as well as depression and intermittent explosive disorder who was admitted following an impulsive suicide attempt via significant Wellbutrin overdose requiring medical admission and intubation. MNPR due to history of high emotional reactivity and behavioral dysregulation 02/01/22: improving. (1) Major depressive disorder with current active episode: (2) Suicide attempt by drug ingestion: (3) Intermittent explosive disorder in adult: (4) Attention deficit hyperactivity disorder: Plan 02/01/22: finalize safety planning. 01/31/22: Continue with current medications and treatment plan. 01/30/22: Continue with clonidine 0.1mg qevening and trazodone 50mg qhs. 01/29/22: The patient was admitted to the [facility] ([facility] mental health unit) on q15 min checks (behavioral with suicide precautions) for safety. The patient will participate in group, recreational, and milieu therapies and will be offered additional individual and family sessions as clinically appropriate. 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 Needs: safety and stabilization, medication adjustment, additional coping skills, incr eased outpatient services Suicide Risk Level Suicide Risk Level: Moderate (q15 min suicide checks) Risk Factors Assessment Male: Yes : No Do You Have Access To A Gun?: No Health Problems: No Mental Health Diagnoses: Yes Previous Attempt: Yes Previous Psychiatric Hospitalization: No Protective Factors Assessment Employed: Yes Stable Relationships: Yes Supportive Family: Yes Interval History Identifying Information STARLA PERALTA is a 21-year-old M who currently lives in [place] with his girlfriend, has a history of ADHD, ODD, IED, depression, and was admitted on 15:02 on a 201 voluntary commitment for suicide attempt via ingestion of Wellbutrin XL requiring ICU admission and intubation. Chief Complaint "I'm really glad that I came here". Review of Systems Sleep Information Total Hours of Sleep: 7.75 Meal Information Percent Meal Consumed - Breakfast: 100 Percent Meal Consumed - Lunch: 90 Percent Meal Consumed - Dinner: 100 Subjective Subjective Patient was seen & assessed and interval progress reviewed with nursing and social work. No acute issues overnight. Family meeting was positive per sw and patient plans to stay with his father for a few weeks after discharge. Physical Exam Psychiatric Orientation: alert and oriented x 3 Apperance: appropriately dressed and appropriately groomed Eye Contact: good eye contact Motor Behavior: no abnormal motor movements Speech: normal rate/rhythm/volume of speech Affect: + constricted affect Mood: no depressed mood and no anxious mood Thought Process: goal directed thought process Thought Content: reality based without delusions Suicidal Thoughts: denies suicidal thoughts (but serious attempt prior to admission), denies suicidal plan and denies suicidal intent Homicidal Thoughts: denies homicidal thoughts Hallucinations: no auditory hallucinations and no visual hallucinations Cognition: attention grossly intact and language grossly intact Vital Signs (Past 24 Hours) Last Vital Signs Temp 37.1 C 02/01/22 06:00 Pulse 93 H 02/01/22 06:41 Resp 16 02/01/22 06:00 BP 107/67 02/01/22 06:41 Pulse Ox 97 02/01/22 06:00 O2 Del Method 02/01/22 06:00 Results & Data ([facility]) Current Inpatient Medications Current Inpatient Medications: Current Inpatient Medications Acetaminophen (Acetaminophen 325 Mg Tab) 650 mg PO Q4H PRN PRN Reason: Headache or Minor Fever Stop: 02/27/22 14:06 Last Admin: 01/31/22 10:25 Dose: 650 mg Al Hydrox/Mg Hydrox/Simethicone (Aluminum/Magnesium Susp 30 Ml Udc) 30 ml PO Q4H PRN PRN Reason: GI Upset Stop: 02/27/22 14:06 Bismuth Subsalicylate (Bismuth Subsalicylate Liqd 236 Ml) 15 ml PO PRN PRN PRN Reason: Loose Stool Stop: 02/27/22 14:06 Clonidine HCl (Clonidine Hcl 0.1 Mg Tab) 0.1 mg PO PM3S BRIAN Stop: 02/28/22 16:59 Last Admin: 01/31/22 17:34 Dose: 0.1 mg Hydroxyzine HCl (Hydroxyzine Hcl 25 Mg Tab) 50 mg PO HSZ PRN PRN Reason: Insomnia Stop: 02/27/22 14:06 Last Admin: 01/28/22 22:09 Dose: 50 mg Hydroxyzine HCl (Hydroxyzine Hcl 25 Mg Tab) 25 mg PO Q4H PRN PRN Reason: Anxiety Stop: 02/27/22 14:06 Magnesium Hydroxide (Magnesium Hydroxide Susp 30 Ml Udc) 30 ml PO DAILY PRN PRN Reason: Constipation Stop: 02/27/22 14:06 Sodium Chloride (Sodium Chloride 0.65% Na Soln 45 Ml ([place])) 1 - 2 sprays NA PRN PRN PRN Reason: Nasal Dryness/Congestion Stop: 02/27/22 14:06 Trazodone HCl (Trazodone Hcl 50 Mg Tab) 50 mg PO HS BRIAN Stop: 02/28/22 21:59 Last Admin: 01/31/22 22:33 Dose: 50 mg Post Discharge Appointments Primary Care Physician Name Of Family Doctor: Laz Rasheed Primary Care Date of Appointment with PCP: 02/05/22 Time of Appointment with PCP: 9:45 AM Provider Appointment Comment: Al Willson, SAMUEL Zamora Contact Information Discharge Discharge Address: [facility] [address], [place] [address]
[2022-02-01] MEDS: cloNIDine HCL 0.1 MG TAB PO SCH (17:18)
[2022-02-01] MEDS: traZODone HCL 50 MG TAB PO SCH (22:34)
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
[2022-02-02] MEDS ORDERED: cloNIDine HCL 0.1 MG TAB PO ONE (13:00)
== END 2022-02-02 14:10 | disposition home or self-care (01) | DRG 881 ==
LOC: 3S 15:02 → SUATTDRO 15:02